=== PATIENT | male | born 1940 | race Caucasian/White ===

== ENCOUNTER 2016-05-25 16:11 | Inpatient (IN) | payer MEDICARE, BC ==
[~2016-05-25] VITALS: Ht 170.2 cm; Wt 74.8 kg
[~2016-05-25 16:11] MED LIST: AMBIEN CR12.5 MG/BO PO; CATAPRES0.2 MG PO; CLONIDINE; COLACE100 MG PO; ELIQUIS2.5 MG PO; GLUCOSAMINE & C1 CAP PO; LASIX80 MG PO; MULTAQ400 MG PO; NORVASC10 MG PO; OMNICEF300 MG PO; PLAVIX75 MG PO; PRILOSEC20 MG PO; PROBIOTIC1 EAC1 PO; RENA-VITE TABL0.8 MG PO; RENVELA800 MG PO; STOOL SOFTENER PO; TUMS PO; TUMS500 MG PO; TYLENOL PM1 TAB PO; XANAX0.25 MG PO; ZOVIRAX200 MG PO; ZYRTEC10 MG PO
[2016-05-25 18:18] VITALS: BP 154/57; BMI 25.9
[2016-05-25 19:40] VITALS: BP 141/52
--- NOTE | 2016-05-25 19:40 | NUR ---
PT RESTING IN BED WITH EYES OPEN. HE WAS VERY ANGRY WHEN I ENTERED THE ROOM. PT STATED: "MY CELL PHONE GOT KNOCKED OFF THE BED, AND I CANT REACH MY ROOM PHONE. (PT HAD THE ROOM PHONE IN HIS LAP) CELL PHONE PICKED UP OFF FLOOR FOR PT. HE THEN STATED: "THAT OTHER NURSE PROMISED ME SHE WOULD SET UP SUCTION FOR ME, AND I HAVENT SEEN HER AGAIN. SEKOU SUCTION SET UP FOR PT. HE THEN COUGHED UP A LARGE AMOUNT OF CLEAR MUCOUS AND SUCTIONED IT OUT OF HIS MOUTH INDEPENDENTLY. LEFT CHEST PORT IS UNACCESSED. LEFT ARM FISTULA HAS GOOD BRUITT AND THRILL. O2 IS ON @ 3 LPM PER NC. SR'S ARE UP X 2 IN BED. CALL LIGHT AND BEDSIDE TABLE ARE WITHIN EASY REACH.
--- NOTE | 2016-05-25 21:53 | NUR ---
PT IS RESTING IN BED WITH EYES OPEN. NO NEEDS VOICED.
--- NOTE | 2016-05-25 22:05 | NUR ---
PT. IN BED WITH HOB UP FOR COMFORT WITH EYES CLOSED AND RESP. EVEN. CALL LIGHT IS WITHIN REACH.
--- NOTE | 2016-05-26 01:47 | NUR ---
PT IS RESTING IN BED WITH EYES CLOSED.
--- NOTE | 2016-05-26 04:34 | NUR ---
PT RESTING IN BED WITH EYES CLOSED. NO DISTRESS NOTED.
[2016-05-26 06:10] LABS: ANION GAP 19.9 mmol/L (8-16); CALCIUM 9.5 mg/dL (8.5-10.1); CARBON DIOXIDE 25.5 mmol/L (21.0-32.0); CREATININE - SERUM 8.2 mg/dL (0.6-1.3); POTASSIUM - SERUM 4.4 mmol/L (3.5-5.1)
[2016-05-26 06:26] LABS: BASOPHILS 0.4 % (0.0-2.0); EOSINOPHILS 1.8 % (0-7); HEMATOCRIT 31.1 % (42.0-54.0); HEMOGLOBIN 10.3 g/dL (13.5-17.5); LYMPHOCYTES 14.3 % (15-50); MCH 35.4 pg (26.0-34.0); MCHC 33.1 g/dL (31.0-37.0); MCV 106.9 fL (80.0-100.0); MEAN PLATELET VOLUME 10.8 fL (7.4-10.4); MONOCYTES 11.5 % (2-11); PLATELET COUNT 157 10x3/uL (130-400); RBC 2.91 10x6/uL (4.20-6.10); RDW 24.6 % (11.5-14.5)
--- NOTE | 2016-05-26 07:35 | NUR ---
RESTING QUIETLY IN BED. CALL LIGHT REACH
[2016-05-26 09:29] VITALS: Ht 170.2 cm; Wt 74.8 kg
--- NOTE | 2016-05-26 12:24 | NUR ---
EATING LUNCH IN ROOM. IN ROOM
[2016-05-26 12:26] VITALS: BP 105/39
--- NOTE | 2016-05-26 16:15 | NUR ---
RESTING QUIETLY IN BED. DR DICKERSON HAS BEEN CONSULTED AND AWARE OF PT BEING ON REHAB. I SPOKE WITH DR DICKERSON ON PHONE AT APPX 1600 AND HE SAID HE WILL ROUND ON PT THIS EVENING.
--- NOTE | 2016-05-26 17:01 | NUR ---
CARE TEAM MEETING: PATIENT NEW TO UNIT AND WILL BE RA AT NEXT MEETING. PCP IS DR. MASON AND CARDIO IS DR. SAMUELS. WILL CONTNIUE TO FOLLOW WITH PATIENT UNTIL DISCHARGED.
--- NOTE | 2016-05-26 18:35 | NUR ---
RESTING QUIETLY IN BED. LEFT KNEE IMMOBILIZER IS OFF WHILE PT IS IN BED. INCISION IS RED AND WARM TO TOUCH. SUTURES NOTED TO INCISION TO LEFT KNEE. F/C PATENT. IS ALERT AND ORIENTED
--- NOTE | 2016-05-26 18:38 | NUR ---
RESTING QUIETLY IN BED. GETTING BEDSIDE DIALYSIS.
--- NOTE | 2016-05-26 19:30 | NUR ---
PT IS RESTING IN BED. DIALYSIS IS IN PROGRESS AT THIS TIME. PT IS ALERT AND ORIENTED X 4. DENIES ACUTE DISCOMFORT AT THIS TIME. LEFT CHEST PORT NOTED. O2 IS ON @ 3LPM PER NC.SR'S ARE UP X 3 IN BED. CALL LIGHT AND BEDSIDE TABLE ARE WITHIN EASY REACH.
[2016-05-26 21:43] VITALS: BP 111/58
--- NOTE | 2016-05-27 01:05 | NUR ---
RESTING QUIETLY IN BED WITH EYES CLOSED. RESPS ARE EVEN AND UNLABORED. NO ACUTE DISTRESS NOTED.
--- NOTE | 2016-05-27 02:18 | NUR ---
PT RESTING,EYES CLOSED. BED LOW. CL IN REACH.
--- NOTE | 2016-05-27 05:05 | NUR ---
PT RESTING IN BED DOING A UPDRAFT TX. NO NEEDS VOICED.
[2016-05-27 08:03] VITALS: BP 134/57
--- NOTE | 2016-05-27 17:50 | NUR ---
SITTING UP IN BED EATING SUPPER
--- NOTE | 2016-05-27 19:45 | NUR ---
PT IN BED WATCHING TV. CUP OF ICE GIVEN PER REQUEST. NO OTHER NEEDS MADE KNOWN AT THIS TIME. WATER AND CALL LIGHT IN REACH.
[2016-05-27 20:45] VITALS: BP 111/64
--- NOTE | 2016-05-27 21:25 | NUR ---
PT IN BED WITH EYES OPEN WATCHING TV. NO NEEDS MADE KNOWN AT THIS TIME. WATER AND CALL LIGHT IN REACH.
--- NOTE | 2016-05-28 00:08 | NUR ---
PT IN BED WITH EYES CLOSED AND CHEST RISING. RESPIRATIONS EVEN AND UNLABORED. NO SIGNS OF DISTRESS NOTED. WATER AND CALL LIGHT IN REACH.
--- NOTE | 2016-05-28 04:10 | NUR ---
PT IN BED WITH EYES CLOSED AT THIS TIME CHEST RISING. NO SIGN/SYMPTOMS OF DISTRESS NOTED. CALL LIGHT IN REACH.
[2016-05-28 05:56] LABS: BASOPHILS 0.1 % (0.0-2.0); EOSINOPHILS 0.1 % (0-7); HEMOGLOBIN 9.2 g/dL (13.5-17.5); IMMATURE GRANULOCYTES 2.3 % (0-5); LYMPHOCYTES 5.3 % (15-50); MCH 35.2 pg (26.0-34.0); MCHC 32.9 g/dL (31.0-37.0); MCV 107.3 fL (80.0-100.0); MEAN PLATELET VOLUME 10.6 fL (7.4-10.4); MONOCYTES 11.3 % (2-11); NEUTROPHILS 80.9 % (40-80); PLATELET COUNT 146 10x3/uL (130-400); RBC 2.61 10x6/uL (4.20-6.10); WBC 14.3 10x3/uL (4.8-10.8)
[2016-05-28 06:09] LABS: ANION GAP 16.2 mmol/L (8-16); CALCIUM 9.6 mg/dL (8.5-10.1); CARBON DIOXIDE 28.6 mmol/L (21.0-32.0); CREATININE - SERUM 7.8 mg/dL (0.6-1.3); PHOSPHOROUS 8.1 mg/dL (2.5-4.9); POTASSIUM - SERUM 4.8 mmol/L (3.5-5.1)
--- NOTE | 2016-05-28 07:38 | NUR ---
PT RESTING IN BED WITH EYES OPEN CALL LIGHT IN REACH WILL MONITER
[2016-05-28 07:55] VITALS: BP 157/72
--- NOTE | 2016-05-28 10:44 | RHP ---
PATIENT: HIRAM BURR MEDICAL RECORD: [id number] ACCOUNT: [id number] LOCATION:[facility] D.1119 : 41 ADMISSION DATE: 05/25/16 REHABILITATION HISTORY AND PHYSICAL EXAMINATION POST ADMISSION PHYSICIAN EXAMINATION DATE OF ADMISSION TO THE REHAB: 05/25/2016 ADMITTING DIAGNOSES: Cerebrovascular accident with left body involvement involving right lacunar region, end-stage renal disease and dysphagia. HISTORY OF PRESENT ILLNESS: The patient is a 75-year-old gentleman, who is admitted to the rehab secondary to a right lacunar infarct with end-stage renal disease requiring hemodialysis and recent pneumonia with acute hypoxic respiratory failure requiring mechanical ventilation. He is a 75-year-old gentleman. He underwent an aortic valve replacement on May 04 and had have a pacemaker placed at [facility]. He was transferred to [facility] for a right CVA and left-sided hemiparesis on May 10 and on May 17 developed respiratory difficulties, believing he might have aspirated while eating a cracker and was transferred back to acute hospitalist, was found to have pneumonia with worsening bilateral infiltrates and acute respiratory failure with hypoxia requiring mechanical ventilation. He has been seen by speech therapy for dysphagia and diet advancements and is tolerating those well. He is also receiving PT for debility. He has an end-stage renal disease and requires hemodialysis 3 times a week. He is now in the ICU and debilitated and needing further acute rehab to return home with his at his prior level of function where he was independent with all ADLs and mobility. He was actually playing golf and was able to get around, but he is currently moderate to total assist with all ADLs and mobility definitely inpatient rehab to get back to his prior level of function. COMORBIDITIES: In this patient include hypertensive chronic kidney disease, atrial fibrillation, dysphagia, pneumonia, respiratory failure, sepsis and septic shock, dependent on renal dialysis, moderate CHF, emphysema, UTI, anemia of chronic disease, electrolyte abnormality, status post aortic valve replacement and pacemaker placement. PAST MEDICAL HISTORY: Significant for anemia, atrial fib, end-stage renal disease, hemodialysis, prostate cancer, multiple myeloma, status post bone marrow transplant, peripheral vascular disease, osteoporosis and hypertension. PAST SURGICAL HISTORY: Includes percutaneous valve replacement, pacemaker placement, radical prostatectomy, bone marrow transplant, cataract surgery and carotid surgery. ALLERGIES: SULFA. CURRENT MEDICATIONS: Include prednisone 20 mg b.i.d. with meals, hydralazine 50 mg daily, furosemide 80 mg daily, Cardura 4 mg daily, Tums 500 mg t.i.d. with meals, Norvasc 10 mg daily, Lipitor 20 mg daily, sevelamer 1600 mg t.i.d. with meals, Protonix 40 mg daily, aspirin chewable 81 mg daily, clonidine 0.1 mg t.i.d. p.r.n. elevated blood pressures, Xanax 0.25 mg b.i.d., Combivent 1 puff q.i.d. p.r.n., polyethylene glycol 17 g in 8 ounces of water daily, albuterol 3 cc q.i.d. p.r.n. shortness of breath, Harrison 1 tab q.4 hours p.r.n. pain, Multaq 400 mg b.i.d. with meals, Colace 100 mg b.i.d. and Pulmicort 0.5 mg b.i.d. HISTORY AND PHYSICAL [id number] HIRAM BURR HABITS: No current alcohol or tobacco use. FAMILY HISTORY: Noncontributory. SOCIAL HISTORY: The patient hopes to return back home with his and get back to his prior level of functioning. REVIEW OF SYSTEMS: GENERAL: Does complain of weakness, especially on one side. HEENT: Denies cold, cough, or congestion. CARDIOVASCULAR: Denies any chest pain. LUNGS: Does complain of shortness of breath when getting up and getting around. PHYSICAL EXAMINATION: VITAL SIGNS: Stable. He is afebrile. GENERAL: A well-developed gentleman, in no acute distress, alert upon exam. HEENT: Normocephalic and atraumatic. Mucosa moist. NECK: Supple. No lymphadenopathy. LUNGS: Clear at this time. HEART: Irregular rate and rhythm. ABDOMEN: Benign. EXTREMITIES: No clubbing, cyanosis or edema. NEUROLOGIC: Consistent with an infarct which noted weakness. LABORATORY DATA: White count is 15,000 probably secondary to his prednisone. His H&H are 10 and 31. His platelet count is 157. His sodium is 135, potassium 4.4, BUN and creatinine of 77 and 8.2 and blood sugar was noted to be 84. ASSESSMENT: This 75-year-old gentleman admitted to the rehab with a working diagnosis of right lacunar infarct, affecting the left side of his body. The patient has potential to make improvement. We instituted the following multidisciplinary therapies including to, but not limited to physical, occupational, respiratory, speech, nutritional services, prosthetics and orthotics. Given his complex condition and risk for more complications, rehabilitation services cannot be provided at a lower level of care such as a senior living facility. PLAN: 1. Admit to [facility] rehab for intensive inpatient therapy to include the following disciplines: A. Physical therapy to improve gait, all transfer skills and bed mobility to a modified independent level. B. Occupational therapy to improve activities of daily to a modified independent level. C. Case management to assist with discharge planning and placement options. D. Nutrition to assist with nutritional needs. E. Rehabilitation nursing to assist and monitor the following medical conditions and to assist with any type of bowel or bladder management. 2. The patient's current medication and medical care will be continued. 3. The patient will be placed on standard fall precautions. 4. The patient's estimated length of stay is approximately 7-10 days. 5. We will go ahead and continue to follow along with renal for hemodialysis. 6. We will go ahead and follow his heart rate closely and see how he improves with physical therapy on his weakness. HISTORY AND PHYSICAL [id number] HIRAM BURR 7. We will discuss this patient during care team staff meeting this week. TRANSINT:[id number] Voice Confirmation ID: [id number] DOCUMENT ID: [id number] GABRIELLA FONTANEZ MD at 1044 CC: [id number] DICTATION DATE: 05/26/16840 SPECIAL PROCEDURES TECH: 05/26/16 1245 ADM IN [address] [place] [address]
--- NOTE | 2016-05-28 12:15 | NUR ---
PT RESTING IN BED EATING LUNCH TOLERATING WELL CALL LIGHT IN REACH WILL MONITER
--- NOTE | 2016-05-28 14:00 | NUR ---
PT RECIVING DIALYSIS IN ROOM TOLERATING WELL WILL MONITER
--- NOTE | 2016-05-28 17:46 | NUR ---
DIALYSIS FININSHED PT EATING SUPPER CALL LIGHT IN REACH WILL MONITER
--- NOTE | 2016-05-28 17:52 | NUR ---
RESTING IN BED RECEIVING DIALYSIS WITH VISTIOR IN THE ROOM.
--- NOTE | 2016-05-28 19:20 | NUR ---
PT IN BED WATCHING TV. NO CONCERNS OR NEEDS MADE KNOWN. CALL LIGHTIN JESUS.
--- NOTE | 2016-05-28 21:45 | NUR ---
PT IN BED WATCHING TV. NO CONCERNS MADE KNOWN AT THIS TIME. CALL LIGHT IN REACH
--- NOTE | 2016-05-29 00:59 | NUR ---
PT IN BED WITH EYES OPEN WATCHING TV. STATES HAVING DIFFICULTY FALLING ASLEEP. SCHEDULED SLEEP AIDE, AND ANTI-ANXIETY MEDICATIONS GIVEN WITH PRN PAIN MED DURING MED PASS. ASSISTED TO BATHROOM MINIMAL ASSIST. SMALL BM REPORTED. NO OTHER COMPLAINTS AT THIS TIME. CALL LIGHT IN REACH.
[2016-05-29 01:41] VITALS: BP 130/62
--- NOTE | 2016-05-29 04:04 | NUR ---
PT IN BED WITH EYES CLOSED AND CHEST RISING RESPIRATIONS EVEN AND UNLABORED. NO CONCERNS NOTED AT THIS TIME. CALL LIGHT IN REACH.
--- NOTE | 2016-05-29 06:44 | NUR ---
PT IN BED WATCHING TV. NO COMPLAINTS OR NEEDS MADE KNOWN. CALL LIGHT IN REACH.
--- NOTE | 2016-05-29 09:34 | NUR ---
RESTING IN BED IN HIS ROOM. DENIES NEEDS. CALL LIGHT IN REACH
--- NOTE | 2016-05-29 12:13 | NUR ---
SITTING UP IN W/C EATING LUNCH IN ROOM. VISITING.
[2016-05-29 12:15] VITALS: BP 121/53
--- NOTE | 2016-05-29 15:58 | NUR ---
RESTING QUIETLY IN BED. C/O MILD DISCOMFORT TO BACK AND HAS HEATED BLANKET TO HIS BACK FOR COMFORT. JUST LEFT
--- NOTE | 2016-05-29 17:51 | NUR ---
EATING SUPPER IN BED. CALL LIGHT IN REACH
--- NOTE | 2016-05-29 19:59 | NUR ---
PT RESTING IN BED WITH EYES OPEN. ALERT AND ORIENTED X 3. DENIES ACUTE PAIN OR DISCOMFORT. VSS. PT ASSISTED UP TO THE BATHROOM. SMALL FORMED BM NOTED. LEFT CHEST PORT NOTED. PT WEARS O2 @ 3LPM PER NC. PT USES YANKEUR SUCTION PRN. SR'S ARE UP X 3 IN BED. CALL LIGHT AND BEDSIDE TABLE ARE WITHIN EASY REACH.
--- NOTE | 2016-05-29 21:51 | NUR ---
PT RESTING IN BED WITH EYES OPEN. NO NEEDS VOICED.
[2016-05-29 23:42] VITALS: BP 127/57
--- NOTE | 2016-05-30 00:37 | NUR ---
PT SEMI FOLWER POSITION, RESPIRATIONS REGULAR AND UNLABORED, NO S/S OF ACUTE DISTRESS.
--- NOTE | 2016-05-30 03:09 | NUR ---
PT ASSISTED TO THE BATHROOM. LARGE AMOUNT OF GAS NOTED. NO BM.
--- NOTE | 2016-05-30 06:31 | NUR ---
PT IS RESTING IN BED DRINKING A CUP OF COFFEE. NO NEEDS VOICED AT THIS TIME. PT OFFERED A SHOWER, WHICH HE REFUSED STATING TODAY WAS A DAY OFF, AND HE THOUGHT HE WOULD JUST STAY IN BED AND RELAX.
--- NOTE | 2016-05-30 07:09 | NUR ---
RESTING QUIETLY IN BED CALL LIGHT IN REACH
--- NOTE | 2016-05-30 12:01 | NUR ---
LAYING IN BED VISITING WITH WHO IS IN ROOM. OXYGEN 3L NC IN PLACE.
[2016-05-30 12:02] VITALS: BP 114/49
--- NOTE | 2016-05-30 17:38 | NUR ---
SITTING UP IN BED EATING SUPPER. DENIES INCREASED SOB OR PAIN.
--- NOTE | 2016-05-30 19:40 | NUR ---
PT. IN BED WITH HOB UP FOR COMFORT AND NEEDING ASSISTANCE TO GO TO THE BATHROOM TO URINATE. ASSISTED PT. TO W/C AND WITH PORTABLE O2 SET AT 3L/MIN VIA N/C. PT. TRANSFERRED ONTO COMMODE WITHOUT ANY HELP AND WAS TOLD TO PULL THE EMERGENCY CORD WHEN FINISHED. PT. STATED HE WOULD.
--- NOTE | 2016-05-30 19:50 | NUR ---
PT. CALLED FOR ASSISTANCE IN BATHROOM. ASSISTED BACK TO W/C AND THEN BACK TO BED WITH PORTABLE O2 @3L/MIN. PT. POSITIONED TO COMFORT AND O2 CONNECTED BACK TO WALL UNIT WITHOUT ANY PROBLEMS.
[2016-05-30 22:00] VITALS: BP 166/60
--- NOTE | 2016-05-31 00:16 | NUR ---
PT. IN BED WITH HOB POSITIONED FOR COMFORT, EYES CLOSED AND RESP. EVEN. JERICA LIGHT WITHIN REACH.
--- NOTE | 2016-05-31 02:07 | NUR ---
PT. IN BED WITH HOB UP FOR COMFORT WITH EYES CLOSED AND RESP. EVEN. CALL LIGHT WITHIN REACH.
--- NOTE | 2016-05-31 03:50 | NUR ---
PT. CALLED AND REPORTED HE WAS SOB. INITIAL PULSE OX WAS 84% ON 3L/MIN OF O2. INCREASED O2 TO 3.5L/MIN AND SAT. WENT UP TO 90%. TURNED O2 BACK DOWN TO 3L/MIN AND CALLED R.T. FOR PRN BREATHING TX. AFTER TX. PT. COUGHED UP A LARGE AMOUNT OF SPUTUM AND PULSE OX BACK TO 96%. PT. FEELING MUCH BETTER ALSO. PT'S CALL LIGHT HAD DROPPED ON THE FLOOR AND PT. OVER EXERTED HIMSELF TRYING TO GET IT. CALL LIGHT CORD WRAPPED AROUND SIDE RAIL AND NOW IT IS SECURED FOR PT. TO ALWAYS BE ABLE TO REACH.
--- NOTE | 2016-05-31 04:10 | NUR ---
PT. REPORTS RESTING MORE COMFORTABLLY NOW THAT HIS RESP. STATUS HAS IMPROVED. HOB UP FOR COMFORT AND CALL LIGHT WITHIN REACH.
--- NOTE | 2016-05-31 05:50 | NUR ---
PT. ONLY WANTS TO SHAVE THIS MORNING HE IS STILL TIRED FROM LAST NIGHT'S SOB EPISODE. PT. TRANSFERRED TO W/C TO GO TO SINK TO SHAVE. ASSISTED PT. WITH GATHERING SUPPLIES AND PT. DID HIS OWN SHAVE. PT. GOT SOB AND WAS ROLLED BACK OVER BY HIS O2 AND IT WAS REPLACED AT HIS REQUEST. PT. SAT IN W/C FOR APPROX. 10 MIN. AND THEN TRANSFERRED BACK TO BED. PT. POSITIONED TO COMFORT AND HAS HIS YONKERS AND CALL LIGHT WITHIN REACH. PT. REQUESTING LACTULOSE BE ORDERED FOR HIS CONSTIPATION. EVEN THOUGH PT. HAD A LARGE BM LAST NIGHT HE STILL FEELS PRESSURE IN HIS ABD. AND THAT IS WHEN HE USUALLY TAKES THE LACTULOSE WHEN HE'S AT HOME. WILL LEAVE A NOTE FOR DR. FONTANEZ TO ORDER THE LACTULOSE. PT. EXPLAINED HE'S TO HAVE HIS 3 HOURS OF THERAPY TODAY AND HIS DIALYSIS. HE EVEN TOLD HIS NOT TO COME SEE HIM TODAY CAUSE HE WAS GOING TO BE TOO BUSY TO VISIT.
--- NOTE | 2016-05-31 09:27 | NUR ---
RECEIVING BEDSIDE DIALYSIS
--- NOTE | 2016-05-31 15:42 | NUR ---
SITTING UP IN W/C DENIES NEEDS
[2016-05-31 18:05] VITALS: BP 125/53
--- NOTE | 2016-05-31 19:32 | NUR ---
PT IS RESTING IN BED WITH EYES OPEN. ALERT AND ORIENTED X 4. DENIES ANY PAIN OR DISCOMFORT AT THIS TIME. VSS. O2 IS ON @ 3LPM PER NC. NO SOB NOTED. PT USES YANKEUR SUCTION INDEPENDENTLY PRN. PT IS VERY TALKATIVE. SR'S ARE UP X 3 IN BED. CALL LIGHT AND BEDSIDE TABLE ARE WITHIN EASY REACH.
--- NOTE | 2016-05-31 21:50 | NUR ---
PT ASSISTED TO THE BATHROOM WITH CGA FOR TRANSFERS. NO BM NOTED.
[2016-05-31 22:11] VITALS: BP 110/47
--- NOTE | 2016-06-01 00:07 | NUR ---
RESTING IN BED WITH EYES CLOSED.
--- NOTE | 2016-06-01 01:57 | NUR ---
PT RESTING IN BED, AWAKE, DENIES NEEDS AT THIS TIME. BED LOW. CL IN REACH.
--- NOTE | 2016-06-01 05:18 | NUR ---
PT IS RESTING QUIETLY IN BED WITH EYES CLOSED. NO DISTRESS NOTED.
[2016-06-01 08:05] VITALS: BP 130/55
--- NOTE | 2016-06-01 08:46 | NUR ---
PT REFUSES MIRALS TODAY. STATES I WILL ONLY TAKE CHRONULAC.
--- NOTE | 2016-06-01 09:36 | NUR ---
SITTING UP IN BED EATING BREAKFAST. NO NEEDS VOICED.
--- NOTE | 2016-06-01 11:34 | NUR ---
SITTING IN WHEELCHAIR AND AMBULATING IN THE HALLWAY WITHOUT FALLS NOTED.
--- NOTE | 2016-06-01 13:32 | NUR ---
RESTING IN BED WITH IN THE ROOM. NO NEEDS VOICED.
--- NOTE | 2016-06-01 14:15 | NUR ---
Nutrition Follow Up: Pt reported that his appetite varies depending on HD. He said that it is good for the most part. Pt is eating 75% meal avg on a Regular diet. +BM 05/31/16. No new labs to assess. Meds noted including Lasix, Lactulose and Prednisone. Rec continue current diet. Will continue to send selective menus and honor food preferences. RD following.
--- NOTE | 2016-06-01 15:41 | NUR ---
SLEEPING IN BED WITH CALLIGHT IN REACH.
--- NOTE | 2016-06-01 17:15 | NUR ---
RESTING IN BED WITHOUT ANY NEEDS VOICED.
--- NOTE | 2016-06-01 19:28 | NUR ---
PT ON TOILET WITH SMALL BM NOTED. TRANSFERED SELF TO WHEELCHAIR. RECEIVING O2 VIA PORTABLE O2 TANK AT 2 LPM NASAL CANULA. PROPELS SELF TO SINK TO WASH HANDS AND BRUSH TEETH BEFORE RETURNING TO BED AND NASAL CANULA TRANSFERRED TO WALL REGULATOR. NO COMPLANTS AT THIS TIME. CALL LIGHT IN REACH.
--- NOTE | 2016-06-01 22:42 | NUR ---
PT IN BED WITH EYES CLOSED CHEST RISING. RESPIRATIONS SHALLOW WITH NO SIGN/SYMPTOMS OF DISTESS NOTED. NASAL CANULA ON WITH 3LPM O2. CALL LIGHT IN REACH.
[2016-06-02 00:09] VITALS: BP 180/71
--- NOTE | 2016-06-02 06:18 | NUR ---
PT IN BED WITH EYES CLOSED AND CHEST RISING. EASILY AROUSED UPON ENTRY. BLOOD DRAWN AND FLUSHED VIA LEFT SUBCLAVIAN PORT WITHOUT DIFFICULTY. NO COMPLAINTS OR CONCERNS MADE KNOWN. CALL LIGHT IN REACH.
[2016-06-02 06:25] LABS: BASOPHILS 0.1 % (0.0-2.0); EOSINOPHILS 0.5 % (0-7); HEMATOCRIT 28.3 % (42.0-54.0); HEMOGLOBIN 9.2 g/dL (13.5-17.5); IMMATURE GRANULOCYTES 2.5 % (0-5); MCH 35.5 pg (26.0-34.0); MCHC 32.5 g/dL (31.0-37.0); MCV 109.3 fL (80.0-100.0); MEAN PLATELET VOLUME 10.9 fL (7.4-10.4); MONOCYTES 13.3 % (2-11); NEUTROPHILS 76.6 % (40-80); RBC 2.59 10x6/uL (4.20-6.10); RDW 22.6 % (11.5-14.5); WBC 16.7 10x3/uL (4.8-10.8)
[2016-06-02 06:40] LABS: PLATELET COUNT 100 10x3/uL (130-400)
[2016-06-02 07:05] LABS: ANION GAP 17.8 mmol/L (8-16); CALCIUM 9.4 mg/dL (8.5-10.1); CARBON DIOXIDE 24.2 mmol/L (21.0-32.0); CREATININE - SERUM 7.9 mg/dL (0.6-1.3)
--- NOTE | 2016-06-02 08:00 | NUR ---
SHIFT ASSMT COMPLETED,DENIES NEEDS,SPITTING UP MORE BLOOD TINGED MUCOUS.ON O2.BREAKFAST GIVEN.
[2016-06-02 08:43] VITALS: BP 143/46
--- NOTE | 2016-06-02 12:00 | NUR ---
RESTING QUIETLY.FAMILY VISITING.
--- NOTE | 2016-06-02 14:06 | NUR ---
CARE TEAM MEETING: SPOUSE ATTENDED MEETING .PLANS ARE FOR PATIENT TO RETURN HOME WITH HER. HE WILL NEED A BEDSIDE COMMODE AT DISCHARGE AND [facility] IS PATIENT DME. WILL CONTINUE TO FOLLOW WITH PATIENT UNTIL DISCHARGED
--- NOTE | 2016-06-02 15:00 | NUR ---
TAKEN TO HD/WC.
[2016-06-02 19:00] VITALS: BP 138/57
--- NOTE | 2016-06-02 20:00 | NUR ---
PT RETURNED TO UNIT FROM DIALYSIS AT THIS TIME. REPORTED TO HAVE 3.5 LITERS REMOVED. VSS. RETURNED TO ROOM TO EAT SUPPER. FOOD WARMED UP IN THE MICROWAVE. O2 IS ON @ 3.5LPM PER NC. LEFT CHEST PORT NOTED. BUT PASTE APPLIED TO COCCYX AT THIS TIME PER PTS REQUEST. SKIN IS SOMEWHAT PINK, BUT NO OPEN AREAS NOTED. SR'S ARE UP X 2 IN BED. CALL LIGHT AND BEDSIDE TABLE ARE WITHIN EASY REACH.
--- NOTE | 2016-06-02 23:00 | NUR ---
PT ASSISTED TO THE BATHROOM. LARGE AMOUNT OF GAS NOTED. NO BM.
--- NOTE | 2016-06-03 01:20 | NUR ---
PT RESTING IN BED. STATED HE WOKE UP HUNGRY. EATING A PUDDING CUP AT THIS TIME.
--- NOTE | 2016-06-03 02:43 | NUR ---
PT RESTING QUIETLY, NO S/S OF ACUTE DISTRESS. SUCTION ON AND AVAILABLE FOR PT TO USE.
--- NOTE | 2016-06-03 05:37 | NUR ---
PT RESTING IN BED WITH EYES OPEN. NO ACUTE DISTRESS NOTED.
--- NOTE | 2016-06-03 07:27 | NUR ---
RESTING QUIETLY IN BED CALL LIGHT IN REACH
[2016-06-03 08:24] VITALS: BP 106/60
--- NOTE | 2016-06-03 13:31 | NUR ---
RESTING QUIETLY IN BED CALL LIGHT IN REACH
[2016-06-03 19:00] VITALS: BP 159/71
--- NOTE | 2016-06-03 20:30 | NUR ---
PT NOTED UP IN BATHROOM WITH FRONT DESK AUXILIARY. LARGE AMOUNT OF GAS NOTED. NO BM. PT ASSISTED BACK TO BED AFTERWARDS. TRANSFERS SBA MOST TIMES BUT AT TIMES WILL REQUEST A SLIGHT BIT OF ASSIST. LEFT CHEST ACCESSED PORT NOTED. LEFT ARM FISTULA NOTED WITH GOOD BRUITT AND THRILL. O2 IS ON @ 3LPM PER NC. SR'S ARE UP X 3 IN BED. CALL LIGHT AND BEDSIDE TABLE ARE WITHIN EASY REACH.
--- NOTE | 2016-06-03 23:35 | NUR ---
PT IS RESTING QUIETLY IN BED WITH EYES CLOSED. RESPS ARE EVEN AND UNLABORED. NO ACUTE DISTRESS NOTED.
--- NOTE | 2016-06-04 03:08 | NUR ---
PT RESTING IN BED WITH EYES CLOSED. NO DISTRESS NOTED.
--- NOTE | 2016-06-04 03:46 | NUR ---
PT RESTING IN BED EATING ICE CHIPS, DENIES NEEDS AT THIS TIME. BED LOW. CL IN REACH.
--- NOTE | 2016-06-04 05:44 | NUR ---
PT RESTING IN BED WATCHING TV AND DRINKING A CUP OF COFFEE. NO NEEDS VOICED.
[2016-06-04 08:26] VITALS: BP 128/51
--- NOTE | 2016-06-04 20:30 | NUR ---
PT RETURNED TO UNIT FROM DIALYSIS AND RETURNED TO BED. NO CONERNS MADE KNOWN UPON RETURN. CALL LIGHT IN REACH.
[2016-06-04 20:46] VITALS: BP 115/48
--- NOTE | 2016-06-04 23:00 | NUR ---
PT IN BED WITH EYES OPEN WATCHING TV. COMPLAINS OF PAIN TO BACK 8/10 WITH PRN TYLENOL PM GIVEN. NO OTHER NEEDS MADE KNOWN. CALL LIGHT IN REACH.
--- NOTE | 2016-06-05 06:59 | NUR ---
PT IN BED WITH EYES OPEN. STATES HE WAS UNABLE TO SLEEP THROUGHOUT THE NIGHT. NO OTHER CONCERNS MADE KNOWN AT THIS TIME. CALL LIGHT IN REACH.
[2016-06-05 07:00] VITALS: BP 130/49
--- NOTE | 2016-06-05 08:00 | NUR ---
SHIFT ASSMT COMPLETED.STILL COUGHING UP SOME BLOOD TINGED SPUTUM NOTED IN YAUNKER AND DRIED ON KLEENEX.BREAKFAST GIVEN.CL IN REACH.
--- NOTE | 2016-06-05 12:00 | NUR ---
JOSEPH MILIAN FOR RENAL AND NOTED PT HAVING WHAT APPEARED TO BE A VERY DARK RED BLOOD CLOT ON HIS TONGUE;STATED SHE WILL CONVERSE WITH .PAGED FOR TRANSFER UPSTAIRS TO SEE MUSHTAQ.
[2016-06-05] MEDS ORDERED: PREDNISONE20 MG PO (12:38)
[2016-06-05] MEDS ORDERED: MIRALAX17 GM PO (12:39)
[2016-06-05] MEDS ORDERED: XANAX0.25 MG PO (12:41)
[2016-06-05] MEDS ORDERED: PROTONIX40 MG PO (12:42)
[2016-06-05] MEDS ORDERED: MULTAQ400 MG PO (12:43)
[2016-06-05] MEDS ORDERED: RENAGEL800 MG PO (12:46)
[2016-06-05] MEDS ORDERED: TUMS500 MG PO (12:47)
[2016-06-05] MEDS ORDERED: PULMICORT0.5 MG/21 INH (12:48)
[2016-06-05] MEDS ORDERED: AMBIEN10 MG PO (12:48)
[2016-06-05] MEDS ORDERED: CARDURA2 MG PO (12:49)
[2016-06-05] MEDS ORDERED: HYDRALAZINE HCL50 MG PO (12:50)
[2016-06-05] MEDS ORDERED: BAYER CHEWABLE81 MG PO (12:51)
[2016-06-05] MEDS ORDERED: LASIX80 MG PO (12:54)
[2016-06-05] MEDS ORDERED: LIPITOR20 MG PO (12:54)
[2016-06-05] MEDS ORDERED: CHRONULAC30 ML PO (12:54)
[2016-06-05] MEDS ORDERED: PROCRIT/EP4000 UNITS SQ (12:55)
[2016-06-05] MEDS ORDERED: NEPHRO-VITE RX1 TAB PO (12:55)
[2016-06-05] MEDS ORDERED: CARDURA4 MG PO ×2 (12:57→13:10)
[2016-06-05] MEDS ORDERED: BUMINATE50 ML IV (12:57)
[2016-06-05] MEDS ORDERED: HEPARIN SO1000 UNIT/ IV ×2 (12:58→13:00)
[2016-06-05] MEDS ORDERED: NORVASC10 MG PO (13:01)
[2016-06-05] MEDS ORDERED: FEXOFENADINE HC60 MG PO (13:02)
[2016-06-05] MEDS ORDERED: PLAVIX75 MG PO (13:02)
[2016-06-05] MEDS ORDERED: CATAPRES0.1 MG PO (13:04)
[2016-06-05] MEDS ORDERED: SODIUM CL 0.91000 ML IV (13:07)
[2016-06-05] MEDS ORDERED: TYLENOL PM1 TAB PO (13:15)
[2016-06-05] MEDS ORDERED: NORCO 7.5/325 T1 TA1 PO (13:20)
[2016-06-05] MEDS ORDERED: IPRAT-ALBUT 0.5-3 ML UPD ×2 (13:30→13:32)
[2016-06-05] MEDS ORDERED: COMBIVENT RESPIM4 GM INH (13:31)
[2016-06-05] MEDS ORDERED: LEVOFLOXAC250 MG/50 IV (14:05)
[2016-06-05] MEDS ORDERED: MAXIPIME 1 GM/D51 G1 IV (14:05)
[2016-06-05] MEDS ORDERED: VANCOMYCIN 1 GM/1 G1 IV (14:06)
[2016-06-05] MEDS ORDERED: RACEMIC EPI 2.0.5 ML NEB (14:09)
--- NOTE | 2016-06-05 14:25 | NUR ---
PLACED IN WC AND [facility]TAKEN TO ROOM 2108/WC WITH PORTABLE O2 ON AT 3L/NC.
--- NOTE | 2016-07-02 13:49 | CN ---
PATIENT NAME:NINO GARCIA MEDICAL RECORD: [id number] : 42 LOCATION:[id number] ADMIT DATE: 05/25/16 ACCOUNT: [id number] CONSULTING PHYSICIAN: MARCELLA LANDIN MD REFERRING PHYSICIAN: GABRIELLA FONTANEZ MD DATE OF CONSULTATION: 06/05/2016 CONSULT REQUESTING PHYSICIAN: Nino Holguin MD REASON FOR CONSULTATION: Hemoptysis. HISTORY OF PRESENT ILLNESS: Mr. Garcia is a 75-year-old gentleman who was recently hospitalized in [facility] for the pneumonia where he required mechanical ventilation. He was in acute respiratory failure. He was discharged over here for aggressive rehabilitation and 3 days ago, noticed he was coughing bright red color blood, sometimes with dark clots. This is getting worse. He was evaluated today by the nephrology and going to transfer to the medical floor for the hemoptysis and shortness of breath. Denies any chest pain. There are no fever and chills. The patient also underwent aortic valve replacement on May 04 and also had a pacemaker placed at the same time in [facility]. He also developed a right CVA and left-sided hemiparesis. He also has a history of dysphagia for which he is being seen by the speech pathologist. REVIEW OF SYSTEMS: Mainly in the history of present illness. PAST MEDICAL HISTORY: 1. Hypertension. 2. End-stage renal disease. 3. Anemia of chronic renal disease. 4. Atrial fibrillation. 5. History of prostate cancer. 6. History of multiple myeloma, status post bone marrow transplant. 7. Peripheral vascular disease. 8. Osteoporosis. 9. Recent hospitalization for respiratory failure and pneumonia. PAST SURGICAL HISTORY: 1. He has a percutaneous valve replacement. 2. Pacemaker placement. 3. Radical prostatectomy. 4. Bone marrow transplant. 5. Cataract surgery. 6. Carotid endarterectomy. ALLERGIES: HE IS ALLERGIC TO SULFA. MEDICATIONS: He is on Plavix, aspirin, and furosemide. He is on hemodialysis. Prednisone 20 mg a day. His all other medication is reviewed. PERSONAL AND SOCIAL HISTORY: The patient is . He lives with his . He is an ex-smoker. He is a nondrinker. FAMILY HISTORY: Noncontributory. PHYSICAL EXAMINATION: CONSULT REPORT [id number] NINO GARCIA GENERAL: Now, the patient is sitting in bed. He is not in acute distress. VITAL SIGNS: The blood pressure is 130/49, pulse is 62, respirations 20, temperature 97.8, and SpO2 of 97% on 3 liter nasal cannula. HEENT: Conjunctivae pink, sclerae nonicteric. NECK: Supple, no JVD. CHEST: There are bilateral crackles. No wheezing. HEART: Rhythm regular, normal sound, no murmur. ABDOMEN: Soft, bowel sounds present. No hepatosplenomegaly. RECTAL: Deferred. EXTREMITIES: No cyanosis, no clubbing, no pedal edema. SKIN: Warm, normal turgor. CENTRAL NERVOUS SYSTEM: The patient is awake and alert. There is no obvious cranial nerve abnormality. The gait was not tested. IMAGING: Chest radiograph on June 03, there is moderate cardiomegaly. There is moderate diffuse pulmonary vascular congestion, increased interstitial marking. LABORATORY DATA: CBC on June 02, the WBC 16.7, hemoglobin 9.2, hematocrit 28.3, and the platelet count is 100. Chemistry on June 02, sodium 129, potassium was 6, chloride 93, BUN is 109, and creatinine 7.9. IMPRESSION: 1. Hemoptysis. The differential diagnoses include, but not limited to: A. Secondary to pneumonia. B. Rule out pulmonary embolism. C. Rule out vasculitis. 2. History of respiratory failure and mechanical ventilation at [facility] recently. 3. History of hospital-acquired pneumonia with recent hospitalization at [facility]. 4. Right cerebrovascular accident with left hemiparesis. 5. End-stage renal disease on hemodialysis. 6. Hypertension. 7. Anemia. RECOMMENDATION: 1. I will a repeat CBC, PT/INR. I will hold the Plavix at this point. Continue aspirin. Get the CTA of the chest. Check ANCA level. Check anti-GBM. 2. Start him on vancomycin, Levaquin, and cefepime for hospital-acquired pneumonia. 3. Racemic epi p.r.n. for hemoptysis. 4. If the hemoptysis persists, we will proceed with bronchoscopy. The patient needs to be transferred from the rehab to the acute medical setting. He is still awaiting the CTA of the chest. The patient was seen and examined at the rehab unit. TRANSINT:[id number] Voice Confirmation ID: [id number] DOCUMENT ID: [id number] CONSULT REPORT [id number] NINO GARCIA MUSHTAQ MD at 1349 CC: GABRIELLA FONTANEZ MD [id number] DICTATION DATE: 06/05/16 1401 MERCHANDISING SPECIALIST: 06/05/16 1449 DIS IN 06/05/16 [place] [id number] [place] [id number]
--- NOTE | 2016-07-19 09:38 | DS ---
PATIENT:HIRAM BURR :42 MEDICAL RECORD: [id number] DISCHARGE SUMMARY ADMISSION DATE: 05/25/16 DISCHARGE DATE: 06/05/16 This is a discharge dated 06/05/2016 from the inpatient rehab. PRIMARY DIAGNOSIS: Decreased functional ability and ability to provide activities of daily living secondary to cerebrovascular accident with left hemiparesis. SECONDARY DIAGNOSES: 1. Dysphagia. 2. End-stage renal disease, on chronic hemodialysis. 3. Atrial fibrillation. 4. Pneumonia. 5. Acute respiratory failure. 6. Congestive heart failure. 7. Emphysema. 8. Anemia of chronic disease. 9. Status post aortic valve replacement and permanent pacemaker placement. 10. Constipation. 11. Hemoptysis. 12. Chest pain. 13. Hyperphosphatemia. 14. Hypertension. CONSULTANTS FOLLOWING THIS HOSPITALIZATION: Nephrology. HOSPITAL COURSE: Full H&P is located elsewhere on the chart on this 75-year-old male who was admitted to inpatient rehab for physical therapy and occupational therapy to improve gait, transfer skills, bed mobility, and activities of daily living to a modified independent level. He was evaluated by PT and OT and their plans of care were followed. He required penitentiary care for observation and assessment and medication administration. He was followed by nephrology during his hospital stay and continued on 3 times weekly hemodialysis. Electrolytes were managed by nephrology. He was cooperative with therapies, progressing towards goals. Case management was involved for discharge planning. He had an elevated white count, it was felt this was due to stress dose steroids. He developed some hemoptysis that worsened after 3 days and it was felt that he needed a higher level of care, so was transferred to the acute hospital. DISCHARGE MEDICATIONS: As per discharge medication reconciliation. DISCHARGE DISPOSITION: The patient is discharged to the inpatient hospital for a higher level of care. He will continue his current diet and level of activity and will follow up with primary care and consultants. TRANSINT:[id number] Voice Confirmation ID: [id number] DOCUMENT ID: [id number] Dictated By: LULY ROBERTS I have interviewed/examined the above patient and agree with these documented findings. DISCHARGE SUMMARY REPORT [id number] AMINAHHIRAM SANDER FONTANEZ, GABRIELLA WELSH at 0938 at 0939 CC: [id number] DICTATION DATE: 07/17/16 1048 QC TECH: 07/17/16 1733 DIS IN 06/05/16 [facility] [address] [id number]
== END 2016-06-05 14:25 | disposition short-term general hospital (02) | DRG 56 ==
LOC: D.REHAB 16:11
PROVIDERS: Internal Medicine Nephrology; ADMIT Emergency Medicine
PROC: 5A1D60Z (ICD-10-PCS; principal; 2016-05-26)
DX: I69.354 Hemiplegia and hemiparesis following cerebral infarction affecting left non-dominant side (principal); N18.6 End stage renal disease; J18.9 Pneumonia, unspecified organism; J96.90 Respiratory failure, unspecified, unspecified whether with hypoxia or hypercapnia; R65.21 Severe sepsis with septic shock; I13.2 Hypertensive heart and chronic kidney disease with heart failure and with stage 5 chronic kidney disease, or end stage renal disease; N39.0 Urinary tract infection, site not specified; R04.2 Hemoptysis; I69.391 Dysphagia following cerebral infarction; I50.9 Heart failure, unspecified; Z99.2 Dependence on renal dialysis; I48.91 Unspecified atrial fibrillation; J43.9 Emphysema, unspecified; D63.1 Anemia in chronic kidney disease; E87.8 Other disorders of electrolyte and fluid balance, not elsewhere classified; Z95.0 Presence of cardiac pacemaker

== ENCOUNTER 2016-06-05 15:00 | Inpatient (IN) | payer MEDICARE, BC ==
[~2016-06-05] VITALS: Ht 170.2 cm; Wt 62.2 kg
[~2016-06-05 15:00] MED LIST changes: +AMBIEN10 MG PO; +BAYER CHEWABLE81 MG PO; +BUMINATE50 ML IV; +CARDURA2 MG PO; +CARDURA4 MG PO; +CATAPRES0.1 MG PO; +CHRONULAC30 ML PO; +COMBIVENT RESPIM4 GM INH; +FEXOFENADINE HC60 MG PO; +HEPARIN SO1000 UNIT/ IV; +HYDRALAZINE HCL50 MG PO; +IPRAT-ALBUT 0.5-3 ML UPD; +LEVOFLOXAC250 MG/50 IV; +LIPITOR20 MG PO; +MAXIPIME 1 GM/D51 G1 IV; +MIRALAX17 GM PO; +NEPHRO-VITE RX1 TAB PO; +NORCO 7.5/325 T1 TA1 PO; +PREDNISONE20 MG PO; +PROCRIT/EP4000 UNITS SQ; +PROTONIX40 MG PO; +PULMICORT0.5 MG/21 INH; +RACEMIC EPI 2.0.5 ML NEB; +RENAGEL800 MG PO; +SODIUM CL 0.91000 ML IV; +VANCOMYCIN 1 GM/1 G1 IV
[2016-06-05 15:20] VITALS: BP 115/48; BMI 25.9
--- NOTE | 2016-06-05 15:24 | NUR ---
PT ARRIVED FROM REHAB BY STRETCHER AND AT SIDE NO DISTRESS OBSERVED O2 3LNC AND PT RESPERATIONS EVEN AND UNLBOARED NO S/S OF DISTRESS OF COUGHING UP BLOOD AT THIS TIME CENTRAL LINE SALINE LOCKED AND FLUSHED WITH 10CC NORMAL SALINE WILL MONITOR
--- NOTE | 2016-06-05 17:05 | NUR ---
PT LAYING IN BED NO DISTRESS OBSERVED CALL LIGHT IN REACH SRX2 BED LOW AND LOCKED. INFUSA PORT WILL NOT DRAW BLOOD BACK FLUSHES WITH NO DIFFICULTY WILL KEEP TARAN NEEDLE IN PLACE AND HAVE PERIPHIEAL LAB DRAWN COMPLETED LAB CALLED AND NOTIFIED
[2016-06-05 17:36] LABS: ALBUMIN 3.2 g/dL (3.4-5.0); BILIRUBIN - TOTAL 0.78 mg/dL (0.2-1.3); CALCIUM 9.5 mg/dL (8.5-10.1); CARBON DIOXIDE 28.6 mmol/L (21.0-32.0); CREATININE - SERUM 5.5 mg/dL (0.6-1.3); POTASSIUM - SERUM 5.6 mmol/L (3.5-5.1); PROTEIN - SERUM 7.6 g/dL (6.4-8.2)
[2016-06-05 18:08] LABS: BASOPHILS 0.1 % (0.0-2.0); EOSINOPHILS 0.1 % (0-7); HEMATOCRIT 30.1 % (42.0-54.0); HEMOGLOBIN 9.7 g/dL (13.5-17.5); IMMATURE GRANULOCYTES 2.3 % (0-5); LYMPHOCYTES 6.6 % (15-50); MCH 35.8 pg (26.0-34.0); MCHC 32.2 g/dL (31.0-37.0); MCV 111.1 fL (80.0-100.0); MEAN PLATELET VOLUME 10.1 fL (7.4-10.4); MONOCYTES 4.7 % (2-11); NEUTROPHILS 86.2 % (40-80); PLATELET COUNT 119 10x3/uL (130-400); RBC 2.71 10x6/uL (4.20-6.10); RDW 22.5 % (11.5-14.5); WBC 14.9 10x3/uL (4.8-10.8)
[2016-06-05 18:24] LABS: INR 1.21 (0.85-1.17); PROTIME 15.2 SECONDS (11.6-15.0)
[2016-06-05 18:26] LABS: D-DIMER-QUANTITATIVE 3.48 ug/mLFEU (0.20-0.54)
--- NOTE | 2016-06-05 19:30 | NUR ---
RECEIVED PT IN BED EYES CLOSED RESP UNLABORED NAD NOTED
[2016-06-05 20:00] VITALS: BP 135/54
[2016-06-06] VITALS: BP 134/53
[2016-06-06 04:00] VITALS: BP 94/41
[2016-06-06 07:00] VITALS: BP 111/47
[2016-06-06 09:36] LABS: ANION GAP 17.3 mmol/L (8-16); BASOPHILS 0.2 % (0.0-2.0); CALCIUM 9.1 mg/dL (8.5-10.1); CARBON DIOXIDE 24.3 mmol/L (21.0-32.0); CREATININE - SERUM 6.2 mg/dL (0.6-1.3); HEMATOCRIT 26.3 % (42.0-54.0); HEMOGLOBIN 8.4 g/dL (13.5-17.5); IMMATURE GRANULOCYTES 3.2 % (0-5); LYMPHOCYTES 9.6 % (15-50); MCH 35.7 pg (26.0-34.0); MCHC 31.9 g/dL (31.0-37.0); MCV 111.9 fL (80.0-100.0); MEAN PLATELET VOLUME 10.7 fL (7.4-10.4); MONOCYTES 11.8 % (2-11); NEUTROPHILS 74.2 % (40-80); PLATELET COUNT 111 10x3/uL (130-400); RBC 2.35 10x6/uL (4.20-6.10); RDW 22.1 % (11.5-14.5); WBC 10.8 10x3/uL (4.8-10.8)
[2016-06-06 09:43] LABS: POTASSIUM - SERUM 4.6 mmol/L (3.5-5.1)
[2016-06-06 11:56] VITALS: BP 154/54
--- NOTE | 2016-06-06 13:07 | NUR ---
PAIN MEDS ADMIN TO PT BY JESSICA NUNEZ WILL MONITOR
--- NOTE | 2016-06-06 14:00 | NUR ---
PT LAYING IN BED NO DISTRESS OBSERVED CALL LIGHT IN REACH SRX2 IN ROOM AT SIDE NO DISTRESS OBSERVED AT THIS TIME WILL MONITOR
[2016-06-06 16:00] VITALS: BP 104/49
--- NOTE | 2016-06-06 16:33 | NUR ---
PT C/O NOT FEELING GOOD AND REQUESTING TO SPEAK WITH DR LANDIN SPOKE WITH DR BERGER AND NOTIFED DR LANDIN SPOKE WITH PT PRIOR TO LEAVING UNIT NO ORDERS RECIVED FROM DR LANDIN AT THIS TIME
[2016-06-06 17:27] LABS: ERYTHROCYTE SEDIMENTATION RATE 29 mm/hr (0-20)
[2016-06-06 20:00] VITALS: BP 114/48
[2016-06-07] VITALS: BP 136/56
--- NOTE | 2016-06-07 00:22 | NUR ---
[employer] AT BEDSIDE FOR VS. NEEDS ADDRESSED, CALL LIGHT IN REACH. WILL CONT TO MONITOR.
[2016-06-07 04:00] VITALS: BP 152/55
[2016-06-07 06:42] LABS: BASOPHILS 0 % (0.0-2.0); EOSINOPHILS 0 % (0-7); HEMATOCRIT 25.2 % (42.0-54.0); HEMOGLOBIN 8.4 g/dL (13.5-17.5); IMMATURE GRANULOCYTES 3.1 % (0-5); LYMPHOCYTES 4.3 % (15-50); MCH 36.4 pg (26.0-34.0); MCHC 33.3 g/dL (31.0-37.0); MEAN PLATELET VOLUME 10.7 fL (7.4-10.4); MONOCYTES 7.8 % (2-11); NEUTROPHILS 84.8 % (40-80); PLATELET COUNT 106 10x3/uL (130-400); RBC 2.31 10x6/uL (4.20-6.10); RDW 22.3 % (11.5-14.5); WBC 11.7 10x3/uL (4.8-10.8)
[2016-06-07 06:44] LABS: MCV 109.1 fL (80.0-100.0)
[2016-06-07 07:05] LABS: ANION GAP 18.2 mmol/L (8-16); CALCIUM 9.1 mg/dL (8.5-10.1); CARBON DIOXIDE 24.1 mmol/L (21.0-32.0); CREATININE - SERUM 7.6 mg/dL (0.6-1.3); POTASSIUM - SERUM 5.3 mmol/L (3.5-5.1); VANCOMYCIN - RANDOM 13.4 ug/mL (10.0-20.0)
--- NOTE | 2016-06-07 07:33 | NUR ---
RECEIVED PT REPORT. NO OTHER NEEDS AT THIS TIME. WILL CONTINUE PLAN OF CARE.
[2016-06-07 07:42] VITALS: BP 133/48
--- NOTE | 2016-06-07 10:45 | NUR ---
PT IS ALERT. ASSESSMENT DONE PER FLOWSHEET. NO OTHER NEEDS AT THIS TIME. WILL CONTINUE TO MONITOR.
[2016-06-07 12:59] VITALS: Ht 170.2 cm; Wt 62.2 kg
--- NOTE | 2016-06-07 13:17 | NUR ---
PT IN HD. WILL AWAIT FOR PT TO FINISH.
[2016-06-07 16:01] VITALS: BP 138/43
[2016-06-07 20:00] VITALS: BP 105/45
--- NOTE | 2016-06-07 23:38 | NUR ---
AML ANALYST AT BEDSIDE FOR VS, NEEDS ADDRESSED AT THIS TIME. CALL LIGHT IN REACH. CONT TO MONITOR.
[2016-06-08 04:00] VITALS: BP 124/46
[2016-06-08 05:33] LABS: BASOPHILS 0.1 % (0.0-2.0); EOSINOPHILS 0 % (0-7); HEMATOCRIT 24.5 % (42.0-54.0); HEMOGLOBIN 8.1 g/dL (13.5-17.5); IMMATURE GRANULOCYTES 1.8 % (0-5); LYMPHOCYTES 3.8 % (15-50); MCH 36.2 pg (26.0-34.0); MCHC 33.1 g/dL (31.0-37.0); MCV 109.4 fL (80.0-100.0); MEAN PLATELET VOLUME 10.1 fL (7.4-10.4); MONOCYTES 9.3 % (2-11); PLATELET COUNT 99 10x3/uL (130-400); RBC 2.24 10x6/uL (4.20-6.10); RDW 21.8 % (11.5-14.5); WBC 13.6 10x3/uL (4.8-10.8)
[2016-06-08 05:56] LABS: ANION GAP 15.9 mmol/L (8-16); CALCIUM 9.2 mg/dL (8.5-10.1); CARBON DIOXIDE 25.6 mmol/L (21.0-32.0); POTASSIUM - SERUM 4.5 mmol/L (3.5-5.1); VANCOMYCIN - RANDOM 25.6 ug/mL (10.0-20.0)
[2016-06-08 07:52] VITALS: BP 103/46
--- NOTE | 2016-06-08 08:14 | NUR ---
received pt report. no other needs at this time. will continue plan of care. no other needs at this time. will continue to monitor.
--- NOTE | 2016-06-08 11:31 | NUR ---
PT IS ALERT. ASSESSMENT DONE PER FLOWSHEET. NO OTHER NEEDS AT THIS TIME. WILL CONTINUE TO MONITOR.
[2016-06-08 11:34] VITALS: BP 103/52
--- NOTE | 2016-06-08 12:26 | NUR ---
NO SS OF DISTRESS WILL CONTINUE TO MONITOR.
--- NOTE | 2016-06-08 13:06 | NUR ---
PT REPORTED BEING SHORT OF BREATH. O2 SAT 62. TURN O2 FROM 2L TO 5L. PAGED RESPIRATORY AND ENCOURAGED PT TO DEEP BREATH. SAT CLIMBED TO 73. RE-EVALUATED PT'S LUNGS, STILL DIMINISHED. RESPIRATORY ARRIVED TO ROOM AND ADMINISTERED BREATHING TX. PT SAT SLOWLY KEITH TO 91-92. WILL CONTINUE TO MONTIOR. BP 125/42
--- NOTE | 2016-06-08 15:58 | NUR ---
Patient Name: HIRAM BURR Admission Status: Elective Accout number: [id number] Admission Date: 06-05-2016 : 1940 Admission Diagnosis:HEMOPTYSIS Attending: ROBI Current LOS: 3 Anticipated DC Date: Planned Disposition: Inpatient Rehab Primary Insurance: MEDICARE A & B PLANNED EXTERNAL PROVIDER: [facility] Discharge Planning Comments: * Is the patient Alert and Oriented? Yes 0 * How many steps to enter\exit or inside your home? NONE 0 * PCP DR. MASON 0 * Pharmacy [facility] 0 * Preadmission Environment Acute Inpatient Rehab 0 * Facility Name [facility] 0 * ADLs Partial Dependent 0 * Partial ADLs (Assistance needed) Ambulation Bathing Medication Management 0 * Equipment Oxygen Walker Wheelchair 0 * Other Equipment [facility] - MEDICAL EQUIPMENT PROVIDER 0 * List name and contact numbers for known caregivers / representatives who currently or will assist patient after discharge: ERICA BURR, SPOUSE, 0 * Community resources currently utilized None 0 * Please name any agencies selected above. NONE 0 * Additional services required to return to the preadmission environment? Yes * Can the patient safely return to the preadmission environment? Yes 0 * Has this patient been hospitalized within the prior 30 days at any hospital? Yes 0 CM MET WITH PT IN ROOM TO DISCUSS DISCHARGE PLANNING AND NEEDS. PT REPORTS LIVING AT HOME INDEPENDENTLY WITH SPOUSE PRIOR TO HEART VALVE REPLACEMENT. PT HAS WALKER, HOME AND PORTABLE OXYGEN WELL A TRANSPORT CHAIR AT HOME PROVIDED BY [facility]. PT HAD NO OUTSIDE SERVICES ASSISTING IN THE HOME. SINCE HEART VALVE REPLACEMENT, PT HAS BEEN TO [facility] INPAT[facility] REH[facility], [facility] AND THEN [facility] IN[facility] PRIOR TO THIS ADMISSION. CM DISCUSSED AVAILABILITY OF HOME HEALTH, REHAB SERVICES AND MEDICAL EQUIPMENT. PT THINKS HE MAY NEED INPATIENT REHAB AGAIN HE IS HAVING LEFT SIDED WEAKNESS AND WAS NOT ABLE TO WALK LIKE HE WAS WHEN HE CAME FROM INPATIENT REHAB. PT THINKS HE CAN TOLERATE THREE HOURS OF PROGRESSIVE THERAPY DAILY WITH GOAL TO RETURN HOME WITH HOME HEALTH AFTER REHAB. REPORTS HIS SPOUSE WILL PICK HO, UP FOR DISCHARGE HOME. PT REPORTS HE IS NOT STRONG ENOUGH TO GO HOME AND THAT HIS LEFT SIDE IS NOT WORKING SINCE ADMISSION TO HOSPITAL FROM [facility]. PT REPORTS HE THINKS HE NEEDS REHAB PRIOR TO GOING HOME AND WANTS TO BE CONSIDERED FOR [facility] INPAT[facility]. CM TO FOLLOW AND ASSIST NEEDED. Housekeeping Laundry Worker: Jason Jaimes
[2016-06-08 16:05] VITALS: BP 124/66
--- NOTE | 2016-06-08 17:26 | NUR ---
Mr. Garcia had bedside hemodialysis today via his left upper arm av fistula. Average blood flow was 350 mls/minute. Net fluid removed was 4145 mls. Cramping post treatment and hypotensive at end of treatment.ost vital signs were:B/P: 110/53, HR: 60, Resps: 20.
[2016-06-08 20:00] VITALS: BP 123/3
--- NOTE | 2016-06-08 20:21 | NUR ---
ASSESSMENT COMPLETE, A&O, IN BED WATCHING TV, PT DENIES PAIN OR NEEDS, BED LOW, CL IN REACH.
--- NOTE | 2016-06-08 21:00 | NUR ---
HS MEDS GIVEN WITH FRESH ICE WATER, PT DENIES NEEDS, BED LOW, CL IN REACH.
--- NOTE | 2016-06-08 21:41 | NUR ---
SPOKE WITH DR MCKINNEY, INFORMED HIM OF CONSULT PLACED BY DR TAYLOR.
--- NOTE | 2016-06-08 23:43 | NUR ---
RELIGION DEPARTMENT CHAIR AT BEDSIDE FOR VS, NEEDS ADDRESSED. CALL LIGHT IN REACH.CONT TO MONITOR.
[2016-06-09] VITALS: BP 122/47
[2016-06-09 04:00] VITALS: BP 143/51
[2016-06-09 06:24] LABS: BASOPHILS 0.1 % (0.0-2.0); EOSINOPHILS 0 % (0-7); HEMATOCRIT 27.2 % (42.0-54.0); IMMATURE GRANULOCYTES 2.1 % (0-5); LYMPHOCYTES 2.8 % (15-50); MCH 35.7 pg (26.0-34.0); MCHC 33.1 g/dL (31.0-37.0); MCV 107.9 fL (80.0-100.0); MEAN PLATELET VOLUME 10.5 fL (7.4-10.4); PLATELET COUNT 108 10x3/uL (130-400); RBC 2.52 10x6/uL (4.20-6.10); RDW 21.5 % (11.5-14.5); WBC 16.1 10x3/uL (4.8-10.8)
[2016-06-09 06:38] LABS: ANION GAP 20.1 mmol/L (8-16); CALCIUM 9.7 mg/dL (8.5-10.1); CARBON DIOXIDE 22.1 mmol/L (21.0-32.0); CREATININE - SERUM 7.4 mg/dL (0.6-1.3); VANCOMYCIN - RANDOM 22.2 ug/mL (10.0-20.0)
[2016-06-09 06:39] LABS: POTASSIUM - SERUM 5.2 mmol/L (3.5-5.1)
[2016-06-09 08:00] VITALS: BP 129/56
[2016-06-09 12:00] VITALS: BP 106/47
--- NOTE | 2016-06-09 13:00 | NUR ---
Nutrition follow-up: Diet: Renal PO intake ~50-75% of meals Labs reviewed No BM charted since 06/03 Labs reviewed Wt: 154# PO intake is fair to good at this time. RDN following.
--- NOTE | 2016-06-09 13:41 | NUR ---
ALERT AND ORIENTED X4. EXPRESSES NOT WANTING DIALYSIS IF NOT DONE AT BEDSIDE. REQUEST TO SPEAK TO DOCTOR. VERÓNICA RENAL ELECTRICIAN MAINTENANCE PAGED. COMPLAINS OF SOB. O2 98% 4L NC. COMPLAINS OF BACK PAIN. ENCOURAGE TO TURN IN BED. REQUEST AIRBED FROM WOUND CARE NURSE. CONTINUE PLAN OF CARE. BED LOCKED AND LOW. CALL LIGHT IN REACH. TWO SIDERAILS UP. SINUS RHYTHM PACED 64bpm ON TELEMETRY.
--- NOTE | 2016-06-09 15:57 | NUR ---
PATIENT PATHWAYS: [facility] @ 10:15am. Med recs forwarded. BMM Dialysis Coordinator.
[2016-06-09 16:00] VITALS: BP 126/46
[2016-06-09 16:14] LABS: ANCA - ANTIMYELOPEROXIDASE <9.0 U/mL (0.0-9.0); ANCA - ANTIPROTEINASE 3 <3.5 U/mL (0.0-3.5); ANCA - ATYPICAL <1:20 titer (Neg:<1:20); ANCA - CYTOPLASMIC <1:20 titer (Neg:<1:20); ANCA - PERINUCLEAR <1:20 titer (Neg:<1:20)
--- NOTE | 2016-06-09 16:29 | NUR ---
ALERT AND ORIENTED X4. BATH AND LINEN CHANGE COMPLETE. SITTING UP IN CHAIR. RT CHEST IP DRESSING CHANGE COMPLETE. SWAP CAPS ON. BIOPATCH IN PLACE. INITIALS AND DATE ON DRESSING. DENIES PAIN. SOB MANAGED WITH O2 THERAPY. CONTINUE PLAN OF CARE. SINUS RHYTHM 64 PACED BEATS ON TELEMETRY. CHAIR LOCKED. CALL LIGHT IN REACH.
--- NOTE | 2016-06-09 18:17 | NUR ---
OT NOTE: PT COMPLETED DYNAMIC SITTING BALANCE WITH CGA. PT COMPLETED SELF FEEDING WITH SET UP. THANK YOU, CIARA ARSHAD/Manda
[2016-06-09 21:56] VITALS: BP 147/103
[2016-06-10 01:17] VITALS: BP 113/59
--- NOTE | 2016-06-10 02:15 | NUR ---
PT RESTING WELL WITHOUT C/O OR DISTRESS NOTED. WILL CONT TO MONITOR. CALL LIGHT WITHIN REACH.
[2016-06-10 05:11] VITALS: BP 106/46
[2016-06-10 05:46] LABS: BASOPHILS 0.1 % (0.0-2.0); EOSINOPHILS 0 % (0-7); HEMATOCRIT 26.2 % (42.0-54.0); HEMOGLOBIN 8.8 g/dL (13.5-17.5); IMMATURE GRANULOCYTES 3.9 % (0-5); LYMPHOCYTES 3.9 % (15-50); MCH 36.1 pg (26.0-34.0); MCHC 33.6 g/dL (31.0-37.0); MCV 107.4 fL (80.0-100.0); MEAN PLATELET VOLUME 10.7 fL (7.4-10.4); NEUTROPHILS 87.1 % (40-80); PLATELET COUNT 106 10x3/uL (130-400); RBC 2.44 10x6/uL (4.20-6.10); RDW 21.8 % (11.5-14.5); WBC 17.7 10x3/uL (4.8-10.8)
--- NOTE | 2016-06-10 06:34 | NUR ---
DR MCKINNEY HERE TO SEE PT, NEW ORDERS RECEIVED AND NOTED FOR CT OF THE HEAD. PT UPDATED ON POC AND VERBALIZES UNDERSTANDING.
[2016-06-10 06:35] LABS: % SATURATION 70 % (15-55); IRON 161 ug/dl (35-150); TOTAL IRON BIND CAPACITY 230 ug/dl (260-445); UNSAT IRON BIND CAPACITY 69 ug/dl (150-375)
[2016-06-10 07:05] LABS: CALCIUM 9.9 mg/dL (8.5-10.1); CARBON DIOXIDE 20.8 mmol/L (21.0-32.0)
[2016-06-10 07:13] LABS: CREATININE - SERUM 9.3 mg/dL (0.6-1.3)
[2016-06-10 07:14] LABS: ANION GAP 22.2 mmol/L (8-16)
--- NOTE | 2016-06-10 07:30 | NUR ---
ELDON IS RESTING QUIETLY WITH EYES CLOSED. HE DID NOT AWAKEN TO MY ENTRY. RESPIRATIONS ARE EVEN AND UNLABORED. HE IS WITHOUT S/S OF DISTRESS OR NEEDS.
[2016-06-10 08:10] VITALS: BP 122/41
--- NOTE | 2016-06-10 10:23 | NUR ---
PT REQUEST TO USE BEDPAN BUT UNABLE TO PRODUCE BOWEL MOVEMENT LYING BACK. ASSISTED PT TO A BEDSIDE COMMODE INSTEAD AND PT HAD LARGE SOFT FORMED BROWN STOOL. PT STATES HE FEELS MUCH RELIEF FROM IT. ASSISTED PT BACK INTO BED AND PULLED HIM UP AND REPOSITIONED FOR COMFORT. AIR MATTRESS INFLATED AND PT STATES HE IS COMFORTABLE AT THIS TIME. NO FURTHER NEEDS AT THIS TIME. WILL CTM.
--- NOTE | 2016-06-10 12:15 | NUR ---
PATIENT IS SITTING UP IN THE BEDSIDE CHAIR. HE WAS ASSISTED TO THE CHAIR PER PT AFTER GOING TO THE RESTROOM HE WAS ABLE TO PASS GAS BUT NOT HAVE A BOWEL MOVEMENT. HE HAS MANY VISITORS AT THE BEDSIDE. HE IS SMILING AND INTERACTING. SPOKE WITH THE DIALYSIS NURSE AND REPORTED TO HIM THAT HE WILL RECEIVE DIALYSIS LATER THIS AFTERNOON. HE VOICED UNDERSTANDING AND DENIES NEEDS.
[2016-06-10 12:25] VITALS: BP 135/47
[2016-06-10 16:18] VITALS: BP 117/43
--- NOTE | 2016-06-10 16:30 | NUR ---
ELDON GIVEN MEDICATIONS, INCLUDING A NORCO FOR PAIN IN HIS BACK. HE IS RECEIVING DIALYSIS AT THE BEDSIDE. FAMILY REMAINS. PATIENT IS VISITING AND LAUGHING WITH HIS FAMILY. DENIES OTHER NEEDS.
--- NOTE | 2016-06-10 18:27 | NUR ---
PATIENT STATES THAT HE IS FEELING BETTER NOW. DIALYSIS CONTINUES AT THE BEDISD WITHOUT ADVERSE REACTIONS.
--- NOTE | 2016-06-10 18:47 | NUR ---
OT NOTE: PT COMPLETED SELF FEEDING WITH SBA. THANK YOU, CIARA ARSHAD/Manda
--- NOTE | 2016-06-10 19:45 | NUR ---
INTRODUCED MYSELF TO PT PRIMARY RN [facility] SHIFT. PT IS ALERT AND ORIENTED RESTING QUIETLY IN BED. SHIFT ASSESSMENT COMPLETED. PT DENIES ANY CURRENT NEEDS AT THIS TIME. CL IN REACH, BED IN LOWEST, SIDE RAILS X2. WILL CPOC AND PULL MEDS FOR NIGHTLY MED PASS SHORTLY.
[2016-06-10 20:00] VITALS: BP 96/37
--- NOTE | 2016-06-10 21:15 | NUR ---
NIGHTLY MEDICATIONS GIVEN. PT REFUSED MIRALAX R/T WANTING A SUPPOSITORY INSTEAD. PT SITTING UP IN BED C/O NOT BEING ABLE TO SPIT OUT ANYTHING AND BREATHE. VSS AND PULSE OX SAT 94%. 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 PTS KNEES ARE VERY DRY APPLIED LOTION ALL OVER LEGS AND ARMS FOR COMFORT. PT DENIES ANY FURTHER NEEDS AT THIS TIME. CL IN REACH. WILL CPOC.
--- NOTE | 2016-06-10 23:49 | NUR ---
PT CALLED STATING "I CANT BREATHE IM GOING TO , CALL RESPIRATORY NURSE" CALLED RESPIRATORY AND TALKED WITH PT, CALMED HIM DOWN, O2 SAT 95% PT GET VERY ANXIOUS BECAUSE HE CANT COUGH UP ANY SPUTUM AND FEELS LIKE ITS "STUCK". RT PROVIDED TX. NO FURTHER NEEDS. CL IN REACH. WILL CTM.
[2016-06-11] VITALS (12 sets, daily range): BP systolic 93–157; BP diastolic 37–68
--- NOTE | 2016-06-11 00:54 | NUR ---
PT SITTING UP IN BED AWAKE STILL. STATES HE IS GETTING SLEEPY AND TRYING TO FALL ASLEEP. RR NONLABORED WITH NC @4L IN PLACE. PT OFTEN COUGHING AND SUCTIONING BUT UNABLE TO PRODUCE ANY SPUTUM. ENCOURAGED FLUID INTAKE TO THIN SECRETIONS. PT DENIES ANY FURTHER NEEDS AT THIS TIME. CL IN REACH. WILL CPOC.
--- NOTE | 2016-06-11 01:40 | NUR ---
PT C/O BACK PAIN AND GENERALIZED DISCOMFORT REQUESTING AND PROVIDED WITH PRN NORCO. NO FURTHER NEEDS. WILL CPOC.
--- NOTE | 2016-06-11 04:26 | NUR ---
OBTAINED CONSENTS FOR BRONCHOSCOPY TODAY AT 11AM BY . PT IS AWAKE AND RESTLESS STATES HE HASNT SLEPT ANY TODAY. REQUESTING TO HAVE HIS PROCEDURE SOONER SO HE CAN BE PUT TO SLEEP. AM LABS DRAWN VIA L.CHEST IMPLANTED PORT, FLUSHED AFTER TO CLEAR LINE AND SWAB CAPS APPLIED. NO FURTHER NEEDS AT THIS TIME. CL IN REACH. WILL CPOC.
[2016-06-11 04:29] LABS: BASOPHILS 0.1 % (0.0-2.0); EOSINOPHILS 0 % (0-7); HEMATOCRIT 25.3 % (42.0-54.0); HEMOGLOBIN 8.6 g/dL (13.5-17.5); IMMATURE GRANULOCYTES 3.5 % (0-5); LYMPHOCYTES 3.4 % (15-50); MCH 36.6 pg (26.0-34.0); MCV 107.7 fL (80.0-100.0); MEAN PLATELET VOLUME 9.8 fL (7.4-10.4); MONOCYTES 7.9 % (2-11); NEUTROPHILS 85.1 % (40-80); PLATELET COUNT 88 10x3/uL (130-400); RBC 2.35 10x6/uL (4.20-6.10); RDW 22.3 % (11.5-14.5); WBC 18.4 10x3/uL (4.8-10.8)
[2016-06-11 04:38] LABS: APTT 26.4 SECONDS (22.8-39.4); INR 1.26 (0.85-1.17); PROTIME 15.7 SECONDS (11.6-15.0)
[2016-06-11 04:50] LABS: CALCIUM 9.1 mg/dL (8.5-10.1); VANCOMYCIN - TROUGH 15.9 ug/mL (10.0-20.0)
[2016-06-11 04:53] LABS: ANION GAP 13.6 mmol/L (8-16); CARBON DIOXIDE 30.1 mmol/L (21.0-32.0); CREATININE - SERUM 6.1 mg/dL (0.6-1.3); POTASSIUM - SERUM 4.7 mmol/L (3.5-5.1)
[2016-06-11 05:19] LABS: PLATELET ESTIMATE DECREASED; PLATELET MORPHOLOGY NORMAL PLT MORPH
--- NOTE | 2016-06-11 07:38 | NUR ---
RECEIVED REPORT FROM NIGHT NURSE. PATIENT ASLEEP WILL CONTINUE TO MONITOR.
--- NOTE | 2016-06-11 10:28 | NUR ---
PRE OPERATIVE MEDICATIONS ADMINISTERED FOR BRONCHOSCOPY. LEFT CHEST PORT PATENT WITH BRISK BLOOD RETURN PRESENT. PT TAKEN TO BROCHOSCOPY AT THIS TIME. WILL MONITOR PT WHEN HE RETURNS TO THE FLOOR.
--- NOTE | 2016-06-11 11:34 | NUR ---
REPORT RECEIVED FROM ENRIQUE DOS SANTOS IN SPECIALS. PT IS STABLE AND WILL RETURN TO THE FLOOR.
--- NOTE | 2016-06-11 11:45 | NUR ---
BACK TO ROOM FROM BRONCHOSCOPY AT THIS TIME. INITIATED VITAL SIGNS PER ORDER. PT SLEEPING AND SNORING. OXYGEN ON 7L OXYMIZED WITH SATURATIONS 96-97%. AT BEDSIDE. WILL CONTINUE TO MONITOR.
[2016-06-11 14:19] LABS: LYMPH - BF 4 %; MACROPHAGES BF 51 %; MESOTHELIALS BF 27 %; NEUT - BF 18 %
--- NOTE | 2016-06-11 14:38 | NUR ---
NUTRITION MONITORING & EVAL PT UNDERGOING HD @ THIS TIME. DIET TO RESUME AT DINNER. WILL PROVIDE DIET, MONITOR PT PROGRESS. RD FOLLOWING
--- NOTE | 2016-06-11 15:00 | NUR ---
DIALYSIS STARTED. PT DENIES NEEDS AT THIS TIME. CALL LIGHT IN REACH, WILL CONTINUE WITH PLAN OF CARE.
--- NOTE | 2016-06-11 17:10 | NUR ---
SCHEDULED MEDICATIONS ADMINISTERED AT THIS TIME. DIALYSIS CONTINUES. DENIES NEEDS AT THIS TIME. CALL LIGHT IN REACH, WILL CONTINUE WITH PLAN OF CARE.
--- NOTE | 2016-06-11 18:14 | NUR ---
Mr. Garcia had bedside hemodialysis today vi his left upper arm av fistula from 1149 until 1750. Average blood flow was 350 mls/minute. Net fluid removed was 3000 mls. Post vital signs were: B/P: 103/42, HR: 71, Temp: 97.7, resps: 18.
--- NOTE | 2016-06-11 21:19 | NUR ---
PT LAYING IN BED WITH FAMILY IN ROOM AT BEDSIDE NO DISTRESS OBSERVED CALL LIGHT IN REACH SRX2 BED LOW AND LOCKED HS MEDS ADMIN AND PT ABLE TO SWALLOW WITH NO DISTRESS RESPERATIONS EVEN AND UNLABORED WILL MONITOR
[2016-06-12 00:15] VITALS: BP 137/50
[2016-06-12 04:30] VITALS: BP 123/47
[2016-06-12 06:11] LABS: INR 1.2 (0.85-1.17); PROTIME 15.1 SECONDS (11.6-15.0)
[2016-06-12 06:40] LABS: HEMATOCRIT 29.4 % (42.0-54.0); HEMOGLOBIN 9.7 g/dL (13.5-17.5); MCH 36.3 pg (26.0-34.0); MCV 110.1 fL (80.0-100.0); PLATELET COUNT 90 10x3/uL (130-400); RBC 2.67 10x6/uL (4.20-6.10); RDW 22.5 % (11.5-14.5); WBC 27.6 10x3/uL (4.8-10.8)
[2016-06-12 06:44] LABS: ANION GAP 11.6 mmol/L (8-16); CALCIUM 9.7 mg/dL (8.5-10.1); CARBON DIOXIDE 32.4 mmol/L (21.0-32.0)
[2016-06-12 06:53] LABS: CREATININE - SERUM 4.3 mg/dL (0.6-1.3)
--- NOTE | 2016-06-12 07:20 | NUR ---
PT REC'D FROM ENRIQUE LIAO. RESTING IN BED WITH BREAKFAST TRAY IN ROOM. AAOX4. NO COMPLAINTS OF PAIN. STATES BOTTOM IS SORE AND HE WOULD LIKE TO GET UP WITH PHYSICAL THERAPY TODAY. STATED I WOULD LET PHYSICAL THERAPY KNOW. CONTINUOUS PULSE OX READING 90% ON 4.5L VIA OXYMIZER. PERSISTENT COUGH PRODUCING THICK BROWN SPUTUM. PT ABLE TO SUCTION SELF. BILAT FINE CRACKLES NOTED TO UPPER LOBES. BILAT LOWER LOBES DIMINISHED. BED LOW, CALL LIGHT IN REACH, DENIES NEEDS. CPOC.
[2016-06-12 07:36] LABS: LYMPHOCYTES 2 % (15-50); NEUTROPHILS 98 % (40-80); PLATELET ESTIMATE DECREASED
[2016-06-12 07:55] VITALS: BP 146/56
--- NOTE | 2016-06-12 08:45 | NUR ---
MORNING MEDS PASSED AT THIS TIME. PHYSICAL THERAPY IN ROOM. ASSISTING PT TO CHAIR AT BEDSIDE. MYCOSTATIN CREAM APPLIED TO GROIN AREA. SON IN ROOM. BED LOW, CALL LIGHT IN REACH, DENIES NEEDS. CPOC.
--- NOTE | 2016-06-12 10:08 | NUR ---
RESP UL ON . IV PATENT. UP IN CHAIR WITH CALL LIGHT IN REACH. WILL CONT. PLAN OF CARE.
[2016-06-12 11:47] VITALS: BP 135/64
[2016-06-12 15:30] VITALS: BP 153/51
--- NOTE | 2016-06-12 19:15 | NUR ---
RECEIVED REPORT, O2-4.5, IV-L.CHEST INFUSE A PORT-SL, ON IST MATTRESS, OSMANIF, R. CHEST PACEMAKER, [id number], DENIES ANY NEEDS, CALL LIGHT IN REACH, WILL CONTINUE TO MONITOR
[2016-06-12 20:10] LABS: AFB SPECIMEN PROCESSING Concentration (())
[2016-06-12 20:26] VITALS: BP 135/43
[2016-06-13 00:35] VITALS: BP 134/58
--- NOTE | 2016-06-13 02:12 | NUR ---
ASSESSMENT COMPLETE, SLEEPING, CALL LIGHT IN REACH
[2016-06-13 04:17] VITALS: BP 164/58
[2016-06-13 05:26] LABS: ANION GAP 16.9 mmol/L (8-16); CALCIUM 9.9 mg/dL (8.5-10.1); CARBON DIOXIDE 26.4 mmol/L (21.0-32.0); POTASSIUM - SERUM 5.3 mmol/L (3.5-5.1)
[2016-06-13 05:28] LABS: BASOPHILS 0.1 % (0.0-2.0); EOSINOPHILS 0 % (0-7); HEMATOCRIT 27.7 % (42.0-54.0); HEMOGLOBIN 9.2 g/dL (13.5-17.5); IMMATURE GRANULOCYTES 2.5 % (0-5); LYMPHOCYTES 2.5 % (15-50); MCH 36.1 pg (26.0-34.0); MCHC 33.2 g/dL (31.0-37.0); MCV 108.6 fL (80.0-100.0); MEAN PLATELET VOLUME 10.7 fL (7.4-10.4); MONOCYTES 4.6 % (2-11); NEUTROPHILS 90.3 % (40-80); PLATELET COUNT 76 10x3/uL (130-400); RBC 2.55 10x6/uL (4.20-6.10); RDW 21.7 % (11.5-14.5); WBC 26.1 10x3/uL (4.8-10.8)
[2016-06-13 05:36] LABS: CREATININE - SERUM 6.5 mg/dL (0.6-1.3)
--- NOTE | 2016-06-13 07:00 | NUR ---
RECEIVED REPORT. ASSUMED CARE OF PATIENT. ALERT/ORIENTED. RESP EVEN AND UNLABORED. CONTINUOUS PULSE OX. 1ST STEP OVERLAY PATENT. DENIES NEEDS AT THIS TIME. CALL LIGHT WITHIN REACH. NO DISTRESS.
--- NOTE | 2016-06-13 07:26 | NUR ---
SLEEPING AT THIS TIME. RESPIRATIONS EVEN AND NON LABORED. CALL LIGHT IN REACH, WILL CONTINUE WITH PLAN OF CARE. SRX2 WITH BED IN LOWEST POSITION AND WHEELS LOCKED.
[2016-06-13 07:41] VITALS: BP 122/57
[2016-06-13 09:18] LABS: MAGNESIUM - SERUM 2.8 mg/dL (1.8-2.4); PHOSPHOROUS 6.7 mg/dL (2.5-4.9)
[2016-06-13 11:39] VITALS: BP 149/75
--- NOTE | 2016-06-13 12:05 | NUR ---
DIETARY REQUEST PLACED FOR PATIENT AT THIS TIME.
--- NOTE | 2016-06-13 15:09 | NUR ---
ASSISTED PATIENT BACK TO BED. CALL LIGHT WITHIN REACH. NO DISTRESS. DENIES NEEDS AT THIS TIME.
[2016-06-13 15:21] VITALS: BP 134/58
--- NOTE | 2016-06-13 17:10 | NUR ---
SITTING IN BED. CONSUMIN PM MEAL AT THIS TIME. NO DISTRESS. CALL LIGHT WITHIN REACH.
--- NOTE | 2016-06-13 18:03 | NUR ---
SITTING UP IN BED CONVERSING ON TELEPHONE. CALL LIGHT WITHIN REACH. NO DISTRESS.
--- NOTE | 2016-06-13 19:30 | NUR ---
VISITING WITH HIS BROADCAST OPERATIONS DIRECTOR AT BEDSIDE. O2 @ 4.5 L. RESP UNLAB, LEFT CHEST IP INTACT AND LOCKED. LEFT AVF WITH + BRUIT AND THRILL NOTED. TELEMETRY IN PLACE SHOWING HR PACED IN THE 60/S. ON FIRST STEP OVERLAY. FOR C & C, TURNING Q 2 HOURS FOR CONTINUED C & C. MARKO WELL. SCDS ON TO BILAT LOWER LEGS.HOB UP SR UP X2, C/L IN REACH. CONTINUE TO MONITOR.
[2016-06-13 20:30] VITALS: BP 102/50
[2016-06-14 00:30] VITALS: BP 100/48
[2016-06-14 04:45] VITALS: BP 123/52
[2016-06-14 06:06] LABS: BASOPHILS 0.1 % (0.0-2.0); EOSINOPHILS 0 % (0-7); HEMATOCRIT 27.1 % (42.0-54.0); HEMOGLOBIN 9.2 g/dL (13.5-17.5); IMMATURE GRANULOCYTES 2.5 % (0-5); LYMPHOCYTES 3.7 % (15-50); MCH 36.2 pg (26.0-34.0); MCHC 33.9 g/dL (31.0-37.0); MCV 106.7 fL (80.0-100.0); MEAN PLATELET VOLUME 10.9 fL (7.4-10.4); NEUTROPHILS 87.7 % (40-80); PLATELET COUNT 80 10x3/uL (130-400); RBC 2.54 10x6/uL (4.20-6.10); RDW 21.5 % (11.5-14.5)
[2016-06-14 06:18] LABS: WBC 19.3 10x3/uL (4.8-10.8)
[2016-06-14 06:26] LABS: CALCIUM 9.4 mg/dL (8.5-10.1); CARBON DIOXIDE 22.7 mmol/L (21.0-32.0); CREATININE - SERUM 8.2 mg/dL (0.6-1.3); POTASSIUM - SERUM 5.7 mmol/L (3.5-5.1)
--- NOTE | 2016-06-14 07:37 | NUR ---
AM ROUNDING- PT LAYING IN BED ON BACK WITH EYES OPEN RESTING. ON FIRST STEP OVERLAY MATTRESS. SUCTION DEVICE AT BEDSIDE THAT PT USES ON HIS OWN PER REPORT FOR MOUTH SECRETIONS. ON MONITOR SHOWING PACED, HR 63. ON 02 AT 4.5L VIA NC. LEFT CHEST INFUSAPORT SEEN THAT IS CURRENTLY SALINE LOCKED. RESERVE LEFT ARM FOR AVF, PT DIALYZES ON M, W, AND F. PER REPORT FROM INSTALLMENT LOAN COLLECTOR NURSE CELSO, PT HAS REDNESS TO BOTTOM AREA, WILL CHECK WHEN DOING DAILY SHIFT ASSESSMENT. PT IS CURRENTLY REQUESTING CUP OF HOT WATER. WILL CONTINUE TO MONITOR AND CONTINUE WITH PLAN OF CARE.
[2016-06-14 08:00] VITALS: BP 161/52
--- NOTE | 2016-06-14 08:54 | NUR ---
CALLED DR. GRAFF OFFICE TO INFORM HIM OF PT HAVING A PACEMAKER AND DR. MCKINNEY ORDERED A MRI TODAY. NURSE AT DR. GRAFF OFFICE STATED HE WOULD NOT BE IN CLINIC UNTIL 11AM. NURSE AT OFFICE GAVE ME DR. GRAFF CELL PHONE NUMBER. CALLED AND SPOKE WITH DR. MCKINNEY ON HIS CELLPHONE. DR. MCKINNEY WAS INFORMED ABOUT PT HAVING PACEMKAER, DR. MCKINNEY SAID HE HAD FORGOTTEN ABOUT PT HAVING A PACEMAKER AND FOR ME TO ORDER A CTA OF NECK WITHOUT CONTRAST. WILL DO ORDERED AND LET RADIOLOGY KNOW.
--- NOTE | 2016-06-14 08:59 | NUR ---
CALLED MRI TO LET THEM KNOW PT WILL NOT BE HAVING A MRI. NO ANSWER. HORTENSIA, CASEWORK MANAGER IS CANCELLING MRI.
--- NOTE | 2016-06-14 09:08 | NUR ---
CALLED DR. MCKINNEY TO CLARIFY FOR CT (GEOVANI) ABOUT PTS CTA. DR. MCKINNEY SAID CTA OF CAROTID WITHOUT CONTRAST. INFORMED GEOVANI IN CT OF THIS AND PUT ORDERS IN PER DR. GRAFF TELEPHONE ORDER.
[2016-06-14 12:00] VITALS: BP 133/57
--- NOTE | 2016-06-14 12:44 | NUR ---
PT TO DIALYSIS VIA BED.
[2016-06-14 13:13] LABS: FUNGUS STAIN Final report (())
[2016-06-14 16:00] VITALS: BP 121/50
--- NOTE | 2016-06-14 18:57 | NUR ---
PM ROUNDING- PT SITTING UP IN BED WITH EYES OPEN TALKING ON CELL PHONE. ON MONITOR SHOWING PACED AT 60. ON 02 AT 4.5L VIA NC. LEFT CHEST INFUSAPORT SEEN WITH NS RUNNING AT KVO (10). LEFT ARM RESERVE FOR AVF, + BRUIT AND + THRILL. PT DIALYZED TODAY (NORMAL IS M, W, AND F). ON FIRST STEP OVERALY MATTRESS. PT IS UP WITH MINIMAL ASSIST. NO NEED AT CURRENT TIME. WILL PASS THIS ON TO WASTE PAPER HAMMERMILL OPERATOR NURSE THAT WILL GET HERE AT 1000.
--- NOTE | 2016-06-14 19:55 | NUR ---
RADIOLOGY CALLED AND STATED THEY ARE COMING TO GET PT FOR PROCEDURE SOON AND THAT PT WOULD NEED 20G IV BECAUSE THEY CANNOT USE HIS INFUSA PORT. INSERTED 20G IV CATHETER X1 STICK TO PTS RIGHT FOREARM. TOLERATED WELL. CALLED RADIOLOGY AND INFORMED HER OF THIS.
[2016-06-14 20:00] VITALS: BP 101/59
--- NOTE | 2016-06-14 20:49 | NUR ---
PT TO RADIOLOGY TO GET CTA OF CAROTID WITHOUT CONTRAST.
--- NOTE | 2016-06-14 21:16 | NUR ---
PT BACK FROM RADIOLOGY VIA BED.
--- NOTE | 2016-06-14 23:00 | NUR ---
REPORT RECEIVED AND CARE ASSUMED. AWAKE AND ALERT, SAYS HE IS FEELING DEPRESSED. NO COMPLAINT OF DISCOMFORT. SR UP X 2, ON 1ST STEP OVERLAY MATTRESS. CALL LIGHT IN EASY REACH. SEE SHIFT ASSESSMENT FLOW FOR MORE DETAILS. WILL MONITOR AND CONTINUE PLAN OF CARE.
[2016-06-15] VITALS: BP 145/59
[2016-06-15 04:00] VITALS: BP 151/66
[2016-06-15 05:12] LABS: BASOPHILS 0.2 % (0.0-2.0); EOSINOPHILS 0.5 % (0-7); HEMATOCRIT 27.7 % (42.0-54.0); HEMOGLOBIN 9.4 g/dL (13.5-17.5); IMMATURE GRANULOCYTES 3.1 % (0-5); LYMPHOCYTES 9.7 % (15-50); MCH 36.3 pg (26.0-34.0); MCHC 33.9 g/dL (31.0-37.0); MCV 106.9 fL (80.0-100.0); MEAN PLATELET VOLUME 10.3 fL (7.4-10.4); MONOCYTES 6.7 % (2-11); NEUTROPHILS 79.8 % (40-80); PLATELET COUNT 74 10x3/uL (130-400); RBC 2.59 10x6/uL (4.20-6.10); RDW 21.7 % (11.5-14.5); WBC 17.8 10x3/uL (4.8-10.8)
[2016-06-15 05:38] LABS: ANION GAP 19.9 mmol/L (8-16); CARBON DIOXIDE 22.6 mmol/L (21.0-32.0); CREATININE - SERUM 8.6 mg/dL (0.6-1.3); POTASSIUM - SERUM 5.5 mmol/L (3.5-5.1)
[2016-06-15 08:11] VITALS: BP 183/61
--- NOTE | 2016-06-15 08:14 | NUR ---
RECEIVED REPORT FROM NIGHT NURSE. PATIENT EATING BREAKFAST WILL CONTINUE TO MONITOR.
[2016-06-15 09:19] LABS: FOLATE (FOLIC ACID) - SERUM 19.4 ng/mL (>3.0)
--- NOTE | 2016-06-15 10:42 | NUR ---
Patient Name: HIRAM BURR Encounter No: [id number] : 1940 Primary Insurance: MEDICARE A & B Anticipated DC Date: 06-15-2016 Planned Disposition: Inpatient Rehab External Planned Provider: [facility] INPATIENT REHAB DCP follow-up note: CM RECEIVED INPATIENT REHAB PRESCREENING ORDER. CM MET WITH PT IN ROOM TO DISCUSS DISCHARGE NEEDS AND PLANNING. CM DISCUSSED AVAILABILITY OF HOME HEALTH, REHAB SERVICES AND MEDICAL EQUIPMENT. PT IS STILL WANTING TO RETURN TO INPATIENT REHAB AT [facility]. SPOUSE TO TRANSPORT HOME AT DISCHARGE. IMPORTANT MESSAGE FROM MEDICARE PROVIDED AND EXPLAINED. CM WAITING COMPLETION OF INPATIENT REHAB PRESCREENING. Jason Jaimes, CASE MANAGEMENT
--- NOTE | 2016-06-15 10:48 | NUR ---
PT LAYING IN BED WITH EYES CLOSED RESTING. ON MONITOR SHOWING PACED AT 60. ON 02 AT 4.5L VIA NC. LEFT CHEST INFUSAPORT SEEN WITH NS RUNNING AT 10CC/HR. RESERVE LEFT ARM FOR AVF. PT DIALYZES ON M, W, AND F. IV SEEN TO RIGHT FOREARM THAT IS CURRENTLY SALINE LOCKED. ON FIRST STEP OVERLAY MATTRESS. PER REPORT FROM KAI JUSTICE, CLOTH SPREADER PT HAS POSSIBLE REHAB PLACEMENT. KAI JUSTICE, CLOTH SPREADER IS DOING DAILY SHIFT ASSESSMENT, WILL DO CARE PLAN AND TEACHING. WILL CONTINUE TO MONITOR AND CONTINUE WITH PLAN OF CARE.
--- NOTE | 2016-06-15 11:07 | NUR ---
Nutrition follow-up: Diet: Renal Pt is not happy with a renal diet; however, K has been running high. PO intake ~50% average of meals Labs reviewed Wt: 137# +BM Will continue to provide food choices and honor food preferences within diet restrictions. RDN following.
[2016-06-15 11:58] VITALS: BP 143/95
--- NOTE | 2016-06-15 13:15 | NUR ---
PT IS CURRENTLY LAYING IN BED ON BACK WITH EYES CLOSED RESTING. NO SIGN OF DISTRESS SEEN. WILL CONTINUE TO MONITOR. IS AT BEDSIDE.
[2016-06-15 15:55] VITALS: BP 157/62
--- NOTE | 2016-06-15 16:03 | NUR ---
Patient Name: HIRAM BURR Encounter No: [id number] : 1940 Primary Insurance: MEDICARE A & B Anticipated DC Date: 06-15-2016 Planned Disposition: Inpatient Rehab External Planned Provider: [facility] INPATIENT REHAB DCP follow-up note: RN LORY HUDSON SPOKE TO MARYURI OF INPATIENT REHAB, THEY PLAN TO ACCEPT PT TODAY FOR REHAB. CM NOTIFIED PT WHO IS IN AGREEMENT WITH DISCHARGE TO INPATIENT REHAB. [facility] INPATIENT REHAB TO CONTACT MED 2 NURSE WITH ROOM NUMBER WHEN READY TO ACCEPT PT AND NURSE REPORT. Jason Jaimes, CASE MANAGEMENT
--- NOTE | 2016-06-15 17:45 | NUR ---
PT LAYING IN BED ON BACK WITH EYES OPEN RESTING. AWAITING TO GO DOWNSTAIRS TO REHAB. D/C INSTRUCTIONS AND PAPERWORK GIVEN TO PT, SIGNED BY PT AND PLACED IN CHART. IV TO RIGHT FOREARM REMOVED WITH CATH TIP INTACT. TOLERATED WELL. SECURED SITE WITH 2X2 GAUZE AND TAPE. AWAITING REHAB TO CALL WITH ROOM NUMBER AND TO GIVE REPORT. WILL CONTINUE TO MONITOR.
--- NOTE | 2016-06-15 18:16 | NUR ---
CALLED REPORT AND SPOKE WITH ADI IN REHAB AND GAVE REPORT FOR PT. THA GONZALEZ IS GATHERING PTS BELONGINGS NOW AND WILL TAKE PT DOWN TO REHAB.
[2016-06-21 09:08] LABS: VIRAL - RESULT No virus isolated. (())
--- NOTE | 2016-06-21 10:08 | EC ---
PATIENT:HIRAM BURR DATE OF SERVICE: 06/05/16 SEX: M MEDICAL RECORD: [id number] DATE OF : 42 LOCATION:D.M2 D.210 AGE OF PATIENT: 75 ADMISSION DATE: 06/05/16 REFERRING PHYSICIAN: INTERPRETING PHYSICIAN: RAAD ADAMS MD ECHOCARDIOGRAM REPORT ECHO CHARGES 4 ECHO COMPLETE CLINICAL DIAGNOSIS: CHF RECENT AVR PROCEDURE IN [place] ECHOCARDIOGRAPHIC MEASUREMENTS (adult normal given) AC root (d.<3.7cm) 4.6 LV Septum d (<1.2 cm> 2.2 Valve Excursion 1.6 LV Septum (systole) 2.7 Left Atria (s.<4.0cm> 5.3 LVPW d(<1.2cm) 2.1 RV (d.<2.3cm) 5.8 LVPW (sytole) 2.7 LV diastole(<5.6CM) 7.7 MV E-F(>70mm/sec) LV systole 5.3 LVOT Diameter 1.9 MV exc.(>10mm) Est.ejection fraction (50-75%) Pericardial Effusion N DOPPLER: LVIT A 34.0 E 166 LA RVSP 61 LVOT 126 AOP1/2T Asc. Ao 269 RVOT 151 RA PA 244 AV Gradient Peak 28.95 AV Mean 13.99 AV Area 1.5 MV Gradient Peak 15.78 MV Mean 3.49 MV Area COMMENTS: Refrigeration Systems Installer: Jethro VASQUEZ Electrician Station Assistant:Ira Adams TAPE# PACS DATE OF SERVICE: 06/08/2016 FINDINGS: 1. Left ventricle chamber size is within normal limits. Left ventricular systolic function is normal. Overall ejection fraction estimated at 55%. 2. Left atrium is within normal limits at 5.3 cm. Right atrium and right ventricle chamber sizes are as well moderately dilated. 3. Valvular structures: Aortic valve is replaced with a tissue prosthesis with normal structure and function in its position. The remaining valvular structures have normal structure and motion. ECHOCARDIOGRAM REPORT [id number] HIRAM BURR 4. Doppler interrogation reveals moderate mitral regurgitation, rbirlljf-rw-nrvlwl tricuspid regurgitation, no other valvular insufficiency or stenosis. Pulmonary systolic pressure is elevated estimated at 61 mmHg. 5. No evidence of pericardial effusion or left ventricular thrombus. TRANSINT:[id number] Voice Confirmation ID: [id number] DOCUMENT ID: [id number] RAAD ADAMS MD at 1008 CC: [id number] DICTATION DATE: 06/08/16 1300 NUCLEAR SCIENTIST: 06/08/16 2256 DIS IN 06/15/16 [facility] [address] [place] [id number]
[2016-07-04 08:14] LABS: FUNGUS CULTURE RESULT 1 Candida albicans (())
[2016-07-09 10:17] LABS: FUNGUS MYCOLOGY CULTURE Final report (())
[2016-08-01 14:09] LABS: ACID FAST CULTURE Negative (()); ACID FAST SMEAR Negative (())
== END 2016-06-15 19:04 | DRG 177 ==
LOC: D.M2 15:00
PROVIDERS: Internal Medicine Nephrology; Internal Medicine Pulmonary Disease; ADMIT Internal Medicine Nephrology
PROC: 5A1D60Z (ICD-10-PCS; 2016-06-07)
PROC: 0BB78ZX Excision of Left Main Bronchus, Via Natural or Artificial Opening Endoscopic, Diagnostic (ICD-10-PCS; 2016-06-11)
PROC: 0BB38ZX Excision of Right Main Bronchus, Via Natural or Artificial Opening Endoscopic, Diagnostic (ICD-10-PCS; 2016-06-11)
PROC: 0B958ZX Drainage of Right Middle Lobe Bronchus, Via Natural or Artificial Opening Endoscopic, Diagnostic (ICD-10-PCS; principal; 2016-06-11 10:55)
DX: J69.0 Pneumonitis due to inhalation of food and vomit (principal); J96.21 Acute and chronic respiratory failure with hypoxia; N18.6 End stage renal disease; I50.21 Acute systolic (congestive) heart failure; I13.2 Hypertensive heart and chronic kidney disease with heart failure and with stage 5 chronic kidney disease, or end stage renal disease; I48.92 Unspecified atrial flutter; E87.1 Hypo-osmolality and hyponatremia; I69.354 Hemiplegia and hemiparesis following cerebral infarction affecting left non-dominant side; R04.89 Hemorrhage from other sites in respiratory passages; Z99.2 Dependence on renal dialysis; I25.10 Atherosclerotic heart disease of native coronary artery without angina pectoris; D63.1 Anemia in chronic kidney disease; I48.91 Unspecified atrial fibrillation; I27.2 Other secondary pulmonary hypertension; I08.1 Rheumatic disorders of both mitral and tricuspid valves; R04.0 Epistaxis; D69.6 Thrombocytopenia, unspecified; E87.5 Hyperkalemia; G47.33 Obstructive sleep apnea (adult) (pediatric); Z95.2 Presence of prosthetic heart valve; Z95.0 Presence of cardiac pacemaker; Z85.46 Personal history of malignant neoplasm of prostate; Z91.19 Patient's noncompliance with other medical treatment and regimen

== ENCOUNTER 2016-06-15 18:36 | Inpatient (IN) | payer MEDICARE, BC ==
[~2016-06-15] VITALS: Ht 170.2 cm; Wt 72.0 kg
[2016-06-15 19:15] VITALS: BP 115/63
[2016-06-16 00:10] VITALS: BP 126/52
[2016-06-16 01:05] VITALS: BP 110/66
--- NOTE | 2016-06-16 07:07 | DS ---
PATIENT:HIRAM BURR :[birth year] MEDICAL RECORD: [id number] DISCHARGE SUMMARY ADMISSION DATE: 06/15/16 DISCHARGE DATE: Greater than 30 minutes was spent with his discharge. HISTORY OF PRESENT ILLNESS: This is a nice gentleman who was admitted with shortness of breath over at [facility]. He needed aggressive ultrafiltration and almost daily dialysis. He improved significantly along with IV antibiotics and was transferred back over here to rehab where he developed hemoptysis. Pulmonary did ask ____ and place him back on his aspirin and Plavix for managing his volume status with dialysis now as well as Lasix. PHYSICAL EXAMINATION: GENERAL: He is alert and oriented times 3. HEENT: Normocephalic, atraumatic. VITAL SIGNS: 110/72 by the MD, heart rate 60-66. NECK: No JVD or thyromegaly. CHEST: Regular rhythm. No rub or gallop. Slightly irregular with occasional ectopic beat. LUNGS: Have crackles at the bases. ABDOMEN: Nontender. No focal neurologic deficit, but globally weak. Lab is consistent with ESRD. We are continuing his medications down stairs. I did decrease his Solu-Medrol to prednisone 20 a day and I believe pulmonary asked to discontinue his 3 antibiotics. DISPOSITION: Stable on discharge, renal diet, activity for rehabilitation. TRANSINT:[id number] Voice Confirmation ID: [id number] DOCUMENT ID: [id number] ANAYELI MANRIQUE MD at [id number] CC: [id number] DICTATION DATE: 06/15/16 1513 CRYSTALLIZER OPERATOR: 06/15/162014 ADM IN [place] [id number] [place] [address]
[2016-06-16 09:12] VITALS: Ht 170.2 cm; Wt 72.0 kg
[2016-06-16 09:19] VITALS: BP 111/58
[2016-06-16 19:00] VITALS: BP 138/48
[2016-06-17 00:10] VITALS: BP 126/52
[2016-06-17 08:35] LABS: ANION GAP 17.1 mmol/L (8-16); CALCIUM 8.9 mg/dL (8.5-10.1); CARBON DIOXIDE 23.3 mmol/L (21.0-32.0); CREATININE - SERUM 7.6 mg/dL (0.6-1.3); POTASSIUM - SERUM 5.4 mmol/L (3.5-5.1)
[2016-06-17 09:04] LABS: BASOPHILS 0.2 % (0.0-2.0); EOSINOPHILS 0.8 % (0-7); HEMATOCRIT 24.8 % (42.0-54.0); HEMOGLOBIN 8.4 g/dL (13.5-17.5); IMMATURE GRANULOCYTES 3.8 % (0-5); LYMPHOCYTES 6.5 % (15-50); MCH 36.2 pg (26.0-34.0); MCHC 33.9 g/dL (31.0-37.0); MCV 106.9 fL (80.0-100.0); MEAN PLATELET VOLUME 11.6 fL (7.4-10.4); MONOCYTES 10.4 % (2-11); NEUTROPHILS 78.3 % (40-80); PLATELET COUNT 64 10x3/uL (130-400); RBC 2.32 10x6/uL (4.20-6.10); RDW 22.2 % (11.5-14.5); WBC 16.8 10x3/uL (4.8-10.8)
--- NOTE | 2016-06-17 10:06 | RHP ---
PATIENT: HIRAM BURR MEDICAL RECORD: [id number] ACCOUNT: [id number] LOCATION:[id number] : 41 ADMISSION DATE: 06/15/16 REHABILITATION HISTORY AND PHYSICAL EXAMINATION POST ADMISSION PHYSICIAN EXAMINATION Post-Admission Physical Examination and History and Physical DATE OF ADMISSION TO REHAB: 06/15/2016 ADMITTING DIAGNOSES: Uremic myopathy, chronic end-stage requiring hemodialysis. HISTORY OF PRESENT ILLNESS: The patient admitted to inpatient rehab for uremic myopathy for chronic end-stage renal disease requiring hemodialysis. He is a 75-year-old gentleman with end-stage renal disease, on hemodialysis who underwent an aortic valve replacement, pacemaker placement on May 04 at [facility] after AV replacement. He had a CVA, was transferred to [facility] inpatient rehab on May 10 for right CVA with left-sided hemiparesis and on May 17, develop respiratory difficulty, he is believing he might have aspirate while eating crackers, he was sent to Emergency Room, he was found to have pneumonia with bilateral infiltrates and admitted to ICU requiring mechanical ventilation. He is transferred to [place] inpatient rehab on May 25. He was improving with PT in rehab, was able to walk some distance with walker; however, the patient begun to have hemoptysis, after 3-4 days hemoptysis is getting worse and blood was dark tinged. He was on Plavix and aspirin. The patient was still on antibiotics and prednisone from previous pneumonia. He was transferred to [facility] due to hemoptysis needing pulmonary workup. D-dimer was elevated. CT that showed no PEs, but bilateral pleural effusions. Pulmonary was consulted for further evaluation. He has had proximal muscle weakness, poor in nutritional intake and decline in functional mobility during his acute hospital stay. He continues on hemodialysis 3 times a week. He was independent prior to this event with both his mobility and ADLs. Currently, he is standby assistance and max assist with his ADLs. He is moderate assist to total assist with his mobility and he plans to return home with his . He is O2 dependent at this time. COMORBIDITIES: In this patient include hemoptysis, chronic end-stage renal disease, anemia, chronic AFib, chronic weakness, chronic aortic valve prosthesis, end-stage renal disease, anemia of chronic disease and coronary artery disease. PAST MEDICAL HISTORY: Significant for cataracts, coronary artery disease, atrial flutter, pneumonia, prostate cancer, multiple myeloma. PAST SURGICAL HISTORY: Includes cataract surgery, tonsillectomy, adenoidectomy, prostatectomy, bilateral CEA, he has had left arm surgery and a cath placement. ALLERGIES: SULFA. CURRENT MEDICATIONS: Include Dulcolax suppositories p.r.n., saline nasal spray, nystatin 5 cc q.a.c. and q.h.s. He is on folic acid daily, prednisone 20 mg daily, Protonix 40 mg daily, Lactinex 1 tab daily, Renagel 1600 mg t.i.d. with meals, lactulose 60 cc daily, Apresoline 50 mg daily, furosemide 80 mg daily, Multaq 400 mg b.i.d. with meals, atorvastatin 20 mg at bedtime. He is on Procrit 40,000 units Tuesday, Tuesday and Tuesday; Plavix 75 mg daily, aspirin HISTORY AND PHYSICAL [id number] HOUSTON,HIRAM BOUCHER chewable 81 mg daily, DuoNeb updrafts as needed. He is on glucosamine chondroitin sulfate t.i.d., Colace 100 mg t.i.d. He is on zolpidem 10 mg q.h.s., hydrocodone one tab q.4 hours p.r.n. pain, Xanax 0.25 mg b.i.d. p.r.n. He is on Cardura 2 mg q.h.s., clonidine 0.1 t.i.d. p.r.n. He is on resinic epinephrine as needed and Amrita 60 mg b.i.d. HABITS: No alcohol or tobacco use. FAMILY HISTORY: Noncontributory. SOCIAL HISTORY: The patient [place] and get back with his . REVIEW OF SYSTEMS: GENERAL: Does complain of weakness or fatigue. HEENT: He denies cold, cough, or congestion. CARDIOVASCULAR: Denies any chest pain. LUNGS: Does complain of shortness of breath. PHYSICAL EXAMINATION: VITAL SIGNS: Stable, afebrile. GENERAL: Elderly gentleman in no acute distress, alert upon exam. HEENT: Normocephalic, atraumatic. Mucosa moist. NECK: Supple. No lymphadenopathy. LUNGS: Coarse breath sounds bilaterally. CARDIOVASCULAR: Regular rate and rhythm. ABDOMEN: Benign. EXTREMITIES: No clubbing, cyanosis, or edema. NEUROLOGIC: Intact. ASSESSMENT: This is a 75-year-old gentleman admitted to the rehab with a working diagnosis of uremic myopathy, he is continued to be followed by renal at this time. The patient has potential to make improvement. We instituted the following multidisciplinary therapies including to, but not limited to physical, occupational, respiratory, speech, nutritional services, prosthetics and orthotics. Given his complex medical condition, risk of further medical complications, rehabilitation services cannot be provided at a lower level of care such as a assisted facility. PLAN: 1. Admit to [facility] rehab for intensive inpatient therapy to include the following disciplines: A. Physical therapy to improve gait, all transfer skills and bed mobility to a modified independent level. B. Occupational therapy to improved activities of daily living to a modified independent level. C. Case management to assist with discharge planning and placement options. D. Nutrition to assist with nutritional needs. E. Rehabilitation nursing to assist in monitoring the patient's underlying medical conditions and to assist with any type of bowel or bladder management. 2. The patient's current medications and medical care will be continued. 3. The patient will be placed on standard fall precautions. 4. We will watch his renal functions closely and follow along with nephrology. 5. We will discuss this patient during care team staff meeting this week. HISTORY AND PHYSICAL [id number] HIRAM BURR TRANSINT:[id number] Voice Confirmation ID: [id number] DOCUMENT ID: [id number] GABRIELLA FONTANEZ MD at 1006 CC: [id number] DICTATION DATE: 06/16/16 0904 DISTRICT EXTENSION SERVICE AGENT: 06/16/16 1051 ADM IN [facility] [address] [place] [address]
[2016-06-17 12:07] VITALS: BP 126/57
[2016-06-17 19:00] VITALS: BP 148/52
[2016-06-18 00:05] VITALS: BP 142/51
[2016-06-18 05:14] VITALS: BP 147/59
[2016-06-18 07:38] LABS: BASOPHILS 0.1 % (0.0-2.0); EOSINOPHILS 0.4 % (0-7); HEMATOCRIT 24.8 % (42.0-54.0); HEMOGLOBIN 8.5 g/dL (13.5-17.5); IMMATURE GRANULOCYTES 4.2 % (0-5); LYMPHOCYTES 5.5 % (15-50); MCH 36.6 pg (26.0-34.0); MCHC 34.3 g/dL (31.0-37.0); MCV 106.9 fL (80.0-100.0); MEAN PLATELET VOLUME 11.1 fL (7.4-10.4); MONOCYTES 10.5 % (2-11); NEUTROPHILS 79.3 % (40-80); PLATELET COUNT 59 10x3/uL (130-400); RBC 2.32 10x6/uL (4.20-6.10); WBC 15.6 10x3/uL (4.8-10.8)
[2016-06-18 07:56] LABS: ANION GAP 20.5 mmol/L (8-16); CALCIUM 8.6 mg/dL (8.5-10.1); CARBON DIOXIDE 21.1 mmol/L (21.0-32.0); CREATININE - SERUM 9.2 mg/dL (0.6-1.3); POTASSIUM - SERUM 5.6 mmol/L (3.5-5.1)
[2016-06-18 19:00] VITALS: BP 17/61
[2016-06-19 00:57] VITALS: BP 113/56
[2016-06-19 06:05] VITALS: BP 147/60
[2016-06-19 07:00] VITALS: BP 116/62
[2016-06-19 07:13] LABS: BASOPHILS 0.1 % (0.0-2.0); EOSINOPHILS 0.8 % (0-7); HEMATOCRIT 25.7 % (42.0-54.0); HEMOGLOBIN 8.6 g/dL (13.5-17.5); IMMATURE GRANULOCYTES 4.1 % (0-5); LYMPHOCYTES 5.7 % (15-50); MCH 36.4 pg (26.0-34.0); MCHC 33.5 g/dL (31.0-37.0); MCV 108.9 fL (80.0-100.0); MEAN PLATELET VOLUME 11.4 fL (7.4-10.4); MONOCYTES 12.5 % (2-11); NEUTROPHILS 76.8 % (40-80); PLATELET COUNT 69 10x3/uL (130-400); RBC 2.36 10x6/uL (4.20-6.10); RDW 22.3 % (11.5-14.5); WBC 13.8 10x3/uL (4.8-10.8)
[2016-06-19 07:26] LABS: % SATURATION 51 % (15-55); IRON 116 ug/dl (35-150); TOTAL IRON BIND CAPACITY 226 ug/dl (260-445); UNSAT IRON BIND CAPACITY 110 ug/dl (150-375)
[2016-06-19 08:08] LABS: CALCIUM 8.6 mg/dL (8.5-10.1); VANCOMYCIN - RANDOM 22.8 ug/mL (10.0-20.0)
[2016-06-19 08:18] LABS: ANION GAP 12.3 mmol/L (8-16); CARBON DIOXIDE 27.9 mmol/L (21.0-32.0); CREATININE - SERUM 5.5 mg/dL (0.6-1.3); POTASSIUM - SERUM 4.2 mmol/L (3.5-5.1)
[2016-06-19 15:00] VITALS: BP 80/42
[2016-06-19 19:29] VITALS: BP 71/46
[2016-06-19 23:38] VITALS: BP 134/61
[2016-06-20 06:13] VITALS: BP 130/61
[2016-06-20 12:00] VITALS: BP 130/70
[2016-06-20 12:29] VITALS: BP 130/70
[2016-06-20 18:42] VITALS: BP 128/58
[2016-06-20 22:14] VITALS: BP 161/62
[2016-06-21 05:06] VITALS: BP 141/56
[2016-06-21 06:05] LABS: BASOPHILS 0.1 % (0.0-2.0); EOSINOPHILS 0.3 % (0-7); LYMPHOCYTES 8.2 % (15-50); MCHC 34.6 g/dL (31.0-37.0); MEAN PLATELET VOLUME 12.1 fL (7.4-10.4); MONOCYTES 7.2 % (2-11); NEUTROPHILS 79.2 % (40-80); PLATELET COUNT 58 10x3/uL (130-400); RDW 23.6 % (11.5-14.5); WBC 14.4 10x3/uL (4.8-10.8)
[2016-06-21 06:08] LABS: HEMATOCRIT 32.4 % (42.0-54.0); HEMOGLOBIN 11.2 g/dL (13.5-17.5); MCV 101.3 fL (80.0-100.0)
[2016-06-21 06:39] LABS: ANION GAP 15.7 mmol/L (8-16); CALCIUM 9.1 mg/dL (8.5-10.1); CARBON DIOXIDE 25.8 mmol/L (21.0-32.0); CREATININE - SERUM 6.3 mg/dL (0.6-1.3); POTASSIUM - SERUM 4.5 mmol/L (3.5-5.1); VANCOMYCIN - RANDOM 13.9 ug/mL (10.0-20.0)
[2016-06-21 12:00] VITALS: BP 118/57
[2016-06-21 18:02] VITALS: BP 108/85
[2016-06-21 19:37] VITALS: BP 108/58
[2016-06-21 23:24] VITALS: BP 101/46
[2016-06-22 05:13] VITALS: BP 134/55
[2016-06-22 09:04] VITALS: BP 91/49
[2016-06-22 19:15] VITALS: BP 137/58
[2016-06-22 23:50] VITALS: BP 141/56
[2016-06-23 05:35] VITALS: BP 137/56
[2016-06-23 06:16] LABS: BASOPHILS 0.1 % (0.0-2.0); EOSINOPHILS 0.4 % (0-7); HEMATOCRIT 31.5 % (42.0-54.0); HEMOGLOBIN 10.5 g/dL (13.5-17.5); IMMATURE GRANULOCYTES 1.8 % (0-5); LYMPHOCYTES 3.9 % (15-50); MCH 34.9 pg (26.0-34.0); MCHC 33.3 g/dL (31.0-37.0); MCV 104.7 fL (80.0-100.0); MEAN PLATELET VOLUME 11.3 fL (7.4-10.4); MONOCYTES 7.4 % (2-11); NEUTROPHILS 86.4 % (40-80); RBC 3.01 10x6/uL (4.20-6.10); RDW 23.8 % (11.5-14.5); WBC 13.7 10x3/uL (4.8-10.8)
[2016-06-23 06:38] LABS: ANION GAP 13.5 mmol/L (8-16); CALCIUM 9.1 mg/dL (8.5-10.1); CARBON DIOXIDE 27.7 mmol/L (21.0-32.0); POTASSIUM - SERUM 4.2 mmol/L (3.5-5.1)
[2016-06-23 07:23] LABS: PLATELET COUNT 46 10x3/uL (130-400)
[2016-06-23 07:57] VITALS: BP 105/52
[2016-06-23 12:47] VITALS: BP 105/57
[2016-06-23 18:00] VITALS: BP 98/43
[2016-06-23 20:04] VITALS: BP 95/55
[2016-06-24 00:36] VITALS: BP 126/60
[2016-06-24 06:20] VITALS: BP 142/58
[2016-06-24 12:13] VITALS: BP 98/54
[2016-06-24 18:00] VITALS: BP 105/57
[2016-06-25 00:59] VITALS: BP 115/63
[2016-06-25 04:54] LABS: BASOPHILS 0.1 % (0.0-2.0); EOSINOPHILS 0.3 % (0-7); HEMATOCRIT 31.1 % (42.0-54.0); HEMOGLOBIN 10.4 g/dL (13.5-17.5); IMMATURE GRANULOCYTES 1.3 % (0-5); LYMPHOCYTES 5.8 % (15-50); MCH 34.7 pg (26.0-34.0); MCHC 33.4 g/dL (31.0-37.0); MCV 103.7 fL (80.0-100.0); MEAN PLATELET VOLUME 10.7 fL (7.4-10.4); MONOCYTES 5.7 % (2-11); NEUTROPHILS 86.8 % (40-80); RDW 23.4 % (11.5-14.5); WBC 15.9 10x3/uL (4.8-10.8)
[2016-06-25 04:55] LABS: PLATELET COUNT 46 10x3/uL (130-400)
[2016-06-25 05:04] LABS: ANION GAP 14.5 mmol/L (8-16); CALCIUM 9.4 mg/dL (8.5-10.1); CARBON DIOXIDE 26.1 mmol/L (21.0-32.0); CREATININE - SERUM 6.1 mg/dL (0.6-1.3); PHOSPHOROUS 5.2 mg/dL (2.5-4.9); POTASSIUM - SERUM 4.6 mmol/L (3.5-5.1)
[2016-06-25 05:24] VITALS: BP 141/60
[2016-06-25 08:37] VITALS: BP 103/45
[2016-06-25 12:46] VITALS: BP 125/53
[2016-06-25 20:16] VITALS: BP 111/54
[2016-06-25 23:17] VITALS: BP 114/64
[2016-06-26 05:40] VITALS: BP 109/75
[2016-06-26 07:00] VITALS: BP 103/52
[2016-06-26 12:00] VITALS: BP 126/59
[2016-06-26 18:30] VITALS: BP 114/51
[2016-06-26 20:00] VITALS: BP 139/66
[2016-06-27 00:05] VITALS: BP 155/75
[2016-06-27 05:16] VITALS: BP 169/61
[2016-06-27 07:00] VITALS: BP 116/65
[2016-06-27 12:28] VITALS: BP 114/62
[2016-06-27 18:39] VITALS: BP 118/66
[2016-06-27 19:00] VITALS: BP 129/56
[2016-06-28 00:10] VITALS: BP 143/58
[2016-06-28 05:56] VITALS: BP 113/49
[2016-06-28 07:02] LABS: BASOPHILS 0.1 % (0.0-2.0); EOSINOPHILS 0.3 % (0-7); HEMATOCRIT 31.5 % (42.0-54.0); HEMOGLOBIN 10.2 g/dL (13.5-17.5); IMMATURE GRANULOCYTES 1.6 % (0-5); LYMPHOCYTES 5.6 % (15-50); MCH 34.6 pg (26.0-34.0); MCHC 32.4 g/dL (31.0-37.0); MCV 106.8 fL (80.0-100.0); MEAN PLATELET VOLUME 11.6 fL (7.4-10.4); MONOCYTES 10.3 % (2-11); NEUTROPHILS 82.1 % (40-80); PLATELET COUNT 58 10x3/uL (130-400); RBC 2.95 10x6/uL (4.20-6.10); RDW 24.3 % (11.5-14.5); WBC 12.4 10x3/uL (4.8-10.8)
[2016-06-28 07:14] LABS: CALCIUM 9.6 mg/dL (8.5-10.1); CARBON DIOXIDE 29.5 mmol/L (21.0-32.0); CREATININE - SERUM 5.1 mg/dL (0.6-1.3); POTASSIUM - SERUM 4.5 mmol/L (3.5-5.1)
[2016-06-28 10:55] VITALS: BP 136/58
[2016-06-28 18:11] VITALS: BP 138/63
[2016-06-28 19:00] VITALS: BP 133/60
[2016-06-29 01:08] VITALS: BP 126/55
[2016-06-29 06:00] VITALS: BP 132/58
[2016-06-29 09:31] VITALS: BP 141/53
[2016-06-30 00:25] VITALS: BP 130/53
[2016-06-30 05:33] VITALS: BP 160/56
[2016-06-30 07:00] VITALS: BP 110/46
[2016-06-30 14:00] VITALS: BP 144/70
[2016-06-30 18:00] VITALS: BP 127/50
[2016-06-30 23:10] VITALS: BP 146/52
[2016-07-01 06:22] VITALS: BP 136/57
[2016-07-01 06:46] LABS: BASOPHILS 0.4 % (0.0-2.0); EOSINOPHILS 0.1 % (0-7); HEMATOCRIT 32.9 % (42.0-54.0); HEMOGLOBIN 10.6 g/dL (13.5-17.5); IMMATURE GRANULOCYTES 5.6 % (0-5); MCH 35.1 pg (26.0-34.0); MCHC 32.2 g/dL (31.0-37.0); MCV 108.9 fL (80.0-100.0); MEAN PLATELET VOLUME 12.2 fL (7.4-10.4); MONOCYTES 6.6 % (2-11); NEUTROPHILS 76.3 % (40-80); RBC 3.02 10x6/uL (4.20-6.10); RDW 24.1 % (11.5-14.5)
[2016-07-01 06:47] LABS: PLATELET COUNT 75 10x3/uL (130-400)
[2016-07-01 06:56] LABS: ANION GAP 12.9 mmol/L (8-16); CALCIUM 9.8 mg/dL (8.5-10.1); CARBON DIOXIDE 28.3 mmol/L (21.0-32.0); CREATININE - SERUM 4.8 mg/dL (0.6-1.3); POTASSIUM - SERUM 4.2 mmol/L (3.5-5.1)
[2016-07-01] MEDS ORDERED: NYSTATIN ORAL SU5 ML PO (11:34)
[2016-07-01] MEDS ORDERED: MEGACE400 MG/10 PO (11:34)
[2016-07-01] MEDS ORDERED: TESSALON PERLE100 MG PO (11:36)
[2016-07-01] MEDS ORDERED: MUCINEX DM ER1 EAC1 PO (11:36)
[2016-07-01 12:00] VITALS: BP 113/54
== END 2016-07-01 17:30 | DRG 91 ==
LOC: D.REHAB 18:36
PROVIDERS: Family Medicine; Internal Medicine Nephrology; ADMIT Emergency Medicine
PROC: 5A1D60Z (ICD-10-PCS; principal; 2016-06-16)
DX: G72.89 Other specified myopathies (principal); N18.6 End stage renal disease; R04.2 Hemoptysis; I12.0 Hypertensive chronic kidney disease with stage 5 chronic kidney disease or end stage renal disease; I69.354 Hemiplegia and hemiparesis following cerebral infarction affecting left non-dominant side; Z99.2 Dependence on renal dialysis; Z95.0 Presence of cardiac pacemaker; I48.2 Chronic atrial fibrillation; R53.1 Weakness; I25.10 Atherosclerotic heart disease of native coronary artery without angina pectoris; D63.1 Anemia in chronic kidney disease

== ENCOUNTER 2016-07-12 18:34 | Inpatient (IN) | payer MEDICARE, BC ==
[~2016-07-12] VITALS: Ht 174 cm; Wt 74.5 kg
--- NOTE | ~2016-07-12 | CN ---
PATIENT NAME:HIRAM GARCIA MEDICAL RECORD: [id number] : 42 LOCATION:MAYE.2302 ADMIT DATE: 07/12/16 ACCOUNT: [id number] CONSULTING PHYSICIAN: MARCELLA LANDIN MD REFERRING PHYSICIAN: ANAYELI MONTGOMERY MD DATE OF CONSULTATION: 07/13/2016 CONSULT REQUESTING PHYSICIAN: Anayeli Montgomery MD. REASON FOR CONSULTATION: Fgohi-yg-yjaqfoc hypoxic respiratory failure, pulmonary edema, possible underlying pneumonia. HISTORY OF PRESENT ILLNESS: Mr. Garcia is a 75-year-old gentleman, who is now a correction resident after a CVA and generalized weakness. According to the patient, since yesterday, he has worsening shortness of breath, wheezing, orthopnea. He has a PND. The patient was brought into the ER. The ABG showed a PaO2 of 51 on 55% oxygen. Chest x-ray showed flash pulmonary edema. He dialyze today. He is feeling a little bit better. The patient denies any fever or chills. No night sweats. REVIEW OF SYSTEMS: Mainly in the history of present illness. PAST MEDICAL HISTORY: 1. End-stage renal disease. 2. Multiple myeloma. 3. Hypertension. 4. Anemia of chronic disease. 5. Atrial fibrillation. 6. History of CA of prostate. 7. Peripheral vascular disease. 8. Osteoporosis. 9. History of hemoptysis on the last admission. 10. Status post left CVA. PAST SURGICAL HISTORY: 1. He has a percutaneous valve replacement. 2. Status post pacemaker placement. 3. Radical prostatectomy. 4. History of bone marrow transplant. 5. Cataract surgery. 6. Carotid endarterectomy. ALLERGIES: HE IS ALLERGIC TO SULFA. PRESENT MEDICATIONS: He is on Zosyn. His other medication is reviewed. PERSONAL AND SOCIAL HISTORY: The patient is . He lives with his . He is an ex-smoker. He is a nondrinker. There is no documented COPD. PHYSICAL EXAMINATION: GENERAL: Now, the patient is lying comfortably in bed. He is not in acute distress. VITAL SIGNS: The blood pressure is 147/58, pulse is 60, respirations 16, temperature 98.2, and SpO2 is 97% on Venturi mask. HEENT: Conjunctivae are pale. Sclerae nonicteric. CONSULT REPORT [id number] HIRAM GARCIA NECK: Supple. There is elevated JVD. CHEST: There are bilateral crackles. No wheezing. HEART: Rate and rhythm irregular. Normal sound. No murmur. ABDOMEN: Soft, bowel sounds present. No hepatosplenomegaly. RECTAL: Deferred. EXTREMITIES: No cyanosis, no clubbing, no pedal edema. SKIN: Warm, normal turgor. CENTRAL NERVOUS SYSTEM: The patient is awake and alert. There is no obvious cranial nerve abnormality. The gait was not tested. CHEST RADIOGRAPH: Showed the flash pulmonary edema. OTHER LABORATORY DATA: CBC: WBC is 17.8, hemoglobin 11.5, hematocrit 34.9, platelet count 115, neutrophils are 77.9%. Chemistry: Sodium is 135, potassium 4.5, BUN is 58, creatinine is 4.6. Glucose is 96. IMPRESSION: 1. Wnemt-ci-bditgxo hypoxic respiratory failure. 2. Pulmonary edema. 3. Leukocytosis. 4. Fluid overload with possible hospital-acquired pneumonia. He is a correction resident and recent hospitalization. 5. End-stage renal disease. 6. Anemia of chronic disease. 7. Atrial fibrillation. 8. Status post cerebrovascular accident with left hemiparesis. 9. History of multiple myeloma. RECOMMENDATION: 1. Continue Zosyn. I will add vancomycin to cover for Gram-positive cocci, questionable MRSA, hospital-acquired pneumonia. 2. Agree with the dialysis, almost 4 L of fluid were taken out today. He is going to dialysis tomorrow again. 3. Albuterol/ipratropium nebulizer as needed. 4. Supplemental oxygen to keep the SpO2 above 92%. 5. Follow up labs and chest radiograph in the morning. Dr. Montgomery, once again, thanks for involving me in the care of Mr. Garcia. TRANSINT:[id number] Voice Confirmation ID: [id number] DOCUMENT ID: [id number] MARCELLA LANDIN MD CC: ANAYELI MONTGOMERY MD [id number] DICTATION DATE: 07/13/16 1205 ELEMENT BURNER: 07/13/16 1240 [place] [address]
[~2016-07-12 18:34] MED LIST changes: +MEGACE400 MG/10 PO; +MUCINEX DM ER1 EAC1 PO; +NYSTATIN ORAL SU5 ML PO; +TESSALON PERLE100 MG PO
[2016-07-12 20:13] LABS: BASOPHILS 0.7 % (0.0-2.0); EOSINOPHILS 0.4 % (0-7); HEMATOCRIT 34.9 % (42.0-54.0); HEMOGLOBIN 11.5 g/dL (13.5-17.5); LYMPHOCYTES 4.5 % (15-50); MCH 36.6 pg (26.0-34.0); MCV 111.1 fL (80.0-100.0); MEAN PLATELET VOLUME 11.1 fL (7.4-10.4); MONOCYTES 8.5 % (2-11); NEUTROPHILS 77.9 % (40-80); RBC 3.14 10x6/uL (4.20-6.10); RDW 24.6 % (11.5-14.5); WBC 17.8 10x3/uL (4.8-10.8)
[2016-07-12 20:15] LABS: PLATELET COUNT 115 10x3/uL (130-400)
[2016-07-12 20:45] LABS: ALBUMIN 2.6 g/dL (3.4-5.0); ALKALINE PHOSPHATASE 145 U/L (46-116); ALT (SGPT) 24 U/L (10-68); BILIRUBIN - TOTAL 0.96 mg/dL (0.2-1.3); CALC OSMOLALITY 284 mosm/kg (275-300); CALCIUM 9.3 mg/dL (8.5-10.1); CARBON DIOXIDE 23.9 mmol/L (21.0-32.0); CHLORIDE - SERUM 97 mmol/L (98-107); CREATININE - SERUM 4.1 mg/dL (0.6-1.3); GLUCOSE 89 mg/dL (74-106); PROTEIN - SERUM 7.1 g/dL (6.4-8.2); SODIUM 136 mmol/L (136-145); UREA NITROGEN 52 mg/dL (7-18); eGFR NON AFRICAN AMERICAN 15 mL/min (90-120)
[2016-07-12 21:01] LABS: CKMB 2.1 U/L (0.0-3.6); CREATINE KINASE 14 UL (21-232)
[2016-07-12 21:05] LABS: TROPONIN-I 0.553 ng/mL (0.000-0.060)
[2016-07-12 22:06] LABS: PRO BNP 88538 pg/mL (0-125)
[2016-07-12 22:57] VITALS: BP 147/83; BMI 24.0
[2016-07-12 23:00] VITALS: BP 147/58
--- NOTE | 2016-07-12 23:07 | NUR ---
PT RECIEVED. VSS. C/O OF PAIN 11/18 RADIATING FROM KNEES. WILL PAGED PHYSICIAN. WILL CONTINUE TO MONITOR.
[2016-07-13] VITALS (24 sets, daily range): BP systolic 93–153; BP diastolic 44–67; Ht 174 cm; Wt 74.5 kg
--- NOTE | 2016-07-13 03:21 | NUR ---
REASSESSMENT COMPLETE PER FLOW SHEET. NO NEW FINDINGS. VSS. WILL CONTINUE TO MONITOR.
[2016-07-13 03:48] LABS: BASOPHILS 0.6 % (0.0-2.0); EOSINOPHILS 0.2 % (0-7); HEMATOCRIT 32.2 % (42.0-54.0); HEMOGLOBIN 10.4 g/dL (13.5-17.5); IMMATURE GRANULOCYTES 7.8 % (0-5); LYMPHOCYTES 4.6 % (15-50); MCH 35.9 pg (26.0-34.0); MCHC 32.3 g/dL (31.0-37.0); MEAN PLATELET VOLUME 10.1 fL (7.4-10.4); MONOCYTES 8.7 % (2-11); NEUTROPHILS 78.1 % (40-80); PLATELET COUNT 92 10x3/uL (130-400); WBC 16.2 10x3/uL (4.8-10.8)
[2016-07-13 03:54] LABS: INR 1.22 (0.85-1.17); PROTIME 15.3 SECONDS (11.6-15.0)
[2016-07-13 04:01] LABS: CALCIUM 9.2 mg/dL (8.5-10.1); CARBON DIOXIDE 25.5 mmol/L (21.0-32.0); CREATININE - SERUM 4.6 mg/dL (0.6-1.3); MAGNESIUM - SERUM 2.2 mg/dL (1.8-2.4); PHOSPHOROUS 4.4 mg/dL (2.5-4.9); POTASSIUM - SERUM 4.5 mmol/L (3.5-5.1)
--- NOTE | 2016-07-13 08:19 | NUR ---
0820- DR MANRIQUE HERE THIS AM. HD NURSE SITTING UP IN ROOM. HERE. BREAKFAST TRAY SERVED AND PT ATE A FEW BITES THEN ASKED FOR NEPRO. NEPRO PROVIDED.
--- NOTE | 2016-07-13 11:53 | NUR ---
Mr. Garcia had bedside hemodialysis today via his left upper arm av fistula from 0843 until 1143. Average blood flow was 400 mls/minute. Today was ultrafilration only. Removed 4000mls net. Post vital signs were:B/P:126/62, HR:63,Temp:98.5,Resps:13. A little hypotensive toward the end of treatment. No other problems.
--- NOTE | 2016-07-13 14:07 | NUR ---
DIALYSIS COORDINATOR: PATIENT PATHWAYS: [facility] MON/WED/FRI 2ND SHIFT. CLINIC NOTIFIED AND RECORDS FORWARDED FOR THEIR CHARTS. JAMES EDUARDO.
--- NOTE | 2016-07-13 15:28 | NUR ---
1200-HD COMPLETE, VSS, AFEBRILE, PT MARKO WELL, LUNCH TRAY SERVED.
--- NOTE | 2016-07-13 20:02 | NUR ---
REPORT RECIEVED.A SSESSMENT COMPLETE PER FLOW SHEET. VSS. DENIES PAIN OR NEEDS. REPOSITIONEDON R SIDE PER REQUEST. RESTING COMFORTABLY.
--- NOTE | 2016-07-13 21:16 | NUR ---
NO FAMILY AT THIS TIME. DR MANRIQUE PAGED. LEAN CALL BACK, PT REQUESTED HOME AMBIEN FOR TONIGHT T ORDER FOR AMBIEN 10 MG QHS TO BE GIVEN. NEEDS MET. VSS. WILL CONTINUE TO MONITOR.
--- NOTE | 2016-07-13 22:58 | NUR ---
REPORT GIVEN NO NEW FINDINGS. VSS WILL CONTINUE TO MONITOR.
--- NOTE | 2016-07-13 23:39 | NUR ---
RECIEVED FROM ICU TO ROOM 2124. TRANSFERRED TO BED. REPOSITIONED AND O2 @ 8L/OXIMISER CONTINUED. RT SETTING UP YANKER. CALL LIGHT IN REACH.
[2016-07-14] VITALS: BP 127/49
--- NOTE | 2016-07-14 01:15 | NUR ---
PT C/O PAIN AND DISCOMFORT. MEDICATED WITH NORCO FOR GENERALIZED PAIN.
[2016-07-14 04:00] VITALS: BP 136/55
--- NOTE | 2016-07-14 04:30 | NUR ---
PT C/0 SEVERE PAIN TO HIS FEET/LEGS, SAYING HE GOT THEM TANGLED IN THE SHEETS AND BY THE TIME HE GOT THEM OUT HE WAS REALLY HURTING. MEDICATED WITH BUPRENEX 0.15 IV. CALL LIGHT IN REACH. CPOC.
--- NOTE | 2016-07-14 06:12 | NUR ---
UNABLE TO GET A BLOOD RETURN FROM PT'S ACCESSED PORT. PT WANTS LAB TO BE DRAWN ON HEMODIALYSIS. TUBES ON FRONT OF CHART.
[2016-07-14 08:00] VITALS: BP 155/55
--- NOTE | 2016-07-14 10:27 | NUR ---
RESP UL ON 02 8L OXIMIZER. TELEMETRY PACED. AT BS. WILL CONT. PLAN OF CARE.
--- NOTE | 2016-07-14 11:00 | NUR ---
CENTRAL LINE DRSG CHANGED BY FAB NUNEZ.
[2016-07-14 12:00] VITALS: BP 97/43
--- NOTE | 2016-07-14 14:18 | NUR ---
PLACD ON 1ST STEP MATTRESS FOR COMFORT.
--- NOTE | 2016-07-14 15:32 | NUR ---
BLADDER SCAN DONE. 0 RESIDULE NOTED.
--- NOTE | 2016-07-14 15:33 | NUR ---
WOUND CARE CONSULT: NOTED STAGE 2 PRESSURE ULCERS TO BILATERAL BUTTOCKS. BOTH MEASURE 1.5CM X 1.5CM CALMOSEPTINE CREAM IS BEING APPLIED DAILY AND NEEDED. LEFT ELBOW HAS SKIN TEAR THAT IS COVERED WITH TEGADERM. BILATERAL ARMS ARE DRY, LOOSE SKIN AND BRUISED. PT IS ON AN AIR OVERLAY MATTRESS AND IS TURNING/REPOSITIONING HIMSELF. WOUND CARE WILL CONTINUE TO MONITOR.
[2016-07-14 16:09] VITALS: BP 122/56
--- NOTE | 2016-07-14 17:39 | NUR ---
Patient Name: HIRAM BURR Admission Status: ER Accout number: [id number] Admission Date: 07-12-2016 : 1940 Admission Diagnosis:SHORTNESS OF BREATH Attending: LIZ Current LOS: 2 Anticipated DC Date: Planned Disposition: [facility] Facility Primary Insurance: MEDICARE A & B PLANNED EXTERNAL PROVIDER: LEONID SANDOVAL MEDICARE REHAB BED Discharge Planning Comments: * Is the patient Alert and Oriented? Yes 0 * How many steps to enter\exit or inside your home? NONE 0 * PCP DR. EDEN 0 * Pharmacy [facility] 0 * Preadmission Environment [facility] Facility 0 * Facility Name [facility] 0 * ADLs Partial Dependent 0 * Partial ADLs (Assistance needed) Bathing Medication Management Toileting Transfers 0 * Equipment Other 0 * Other Equipment [facility]IP[facility] * List name and contact numbers for known caregivers / representatives who currently or will assist patient after discharge: ERICA BURR, SPOUSE, 0 * Community resources currently utilized Other 0 * Please name any agencies selected above. OUTPATIENT DIALYSIS, [facility], M/W/F, 1200, TRANSPORT BY [facility] 0 * Additional services required to return to the preadmission environment? No 0 * Can the patient safely return to the preadmission environment? Yes 0 * Has this patient been hospitalized within the prior 30 days at any hospital? Yes 0 CM MET WITH PT IN ROOM TO DISCUSS DISCHARGE PLANNING AND NEEDS. PT REPORTS LIVING AT HOME INDEPENDENTLY WITH HIS SPOUSE PRIOR TO GOING TO INPATIENT REHAB AT [place] AND THEN [facility] FOR CONTINUED REHAB. PT REPORTS PLAN TO RETURN TO [facility] FOR CONTINUED REHAB AT DISCHARGE. PT RECEIVES OUTPATIENT DIALYSIS AT [facility], MWF, 1200, TRANSPORTED BY [facility]. FOR DISCHARGE, FAX DISCHARGE INFORMATION TO [facility] AT [phone]; NURSE REPORT TO BE CALLED TO [facility] AT [phone]. [facility] TO ARRANGE VAN TRANSPORTATION IF PT IS ABLE TO SIT SAFELY FOR DURATION OF TRANSPORT. Editor Managing Newspaper: Jason Jaimes
--- NOTE | 2016-07-14 18:03 | NUR ---
LEAVING FOR DIALYSIS BY BED.
[2016-07-14 18:23] LABS: BASOPHILS 0.8 % (0.0-2.0); EOSINOPHILS 0.7 % (0-7); HEMATOCRIT 31.7 % (42.0-54.0); HEMOGLOBIN 10.6 g/dL (13.5-17.5); IMMATURE GRANULOCYTES 9.5 % (0-5); LYMPHOCYTES 3.3 % (15-50); MCH 36.4 pg (26.0-34.0); MCHC 33.4 g/dL (31.0-37.0); MEAN PLATELET VOLUME 11.9 fL (7.4-10.4); MONOCYTES 8.1 % (2-11); NEUTROPHILS 77.6 % (40-80); RBC 2.91 10x6/uL (4.20-6.10); RDW 23.2 % (11.5-14.5); WBC 17.4 10x3/uL (4.8-10.8)
[2016-07-14 18:27] LABS: MCV 108.9 fL (80.0-100.0); PLATELET COUNT 117 10x3/uL (130-400)
[2016-07-14 18:44] LABS: ANION GAP 22.3 mmol/L (8-16); CALCIUM 9.9 mg/dL (8.5-10.1); CARBON DIOXIDE 21.5 mmol/L (21.0-32.0); POTASSIUM - SERUM 4.8 mmol/L (3.5-5.1); VANCOMYCIN - RANDOM 22.8 ug/mL (10.0-20.0)
[2016-07-14 18:45] LABS: CREATININE - SERUM 6.8 mg/dL (0.6-1.3); PHOSPHOROUS 7.2 mg/dL (2.5-4.9)
--- NOTE | 2016-07-14 19:34 | NUR ---
PT DOWNSTAIRS IN HEMODIALYSIS. REQUEST FOR PAIN PILL. PAIN PILL BROUGHT TO PT.
--- NOTE | 2016-07-14 20:47 | NUR ---
PT RETURNED VIA BED FROM DIALYSIS.
--- NOTE | 2016-07-14 21:04 | NUR ---
PT IMMEDIATELY SENT LUMBER CARRIER OPERATOR TO TELL NURSE HE NEEDED A PAIN PILL, WHEN HE WAS JUST GIVEN ONE IN DIALYSIS. PT THEN CALLED ON THE PHONE AND TOLD NURSE ON THE PHONE HE NEEDED A PAIN PILL, PLUS LUMBER CARRIER OPERATOR RETURNED TO ROOM AND TOLD HIM NURSE COULD NOT BRING ANOTHER ONE. PT THEN CALLED ON PHONE AGAIN AND TOLD ANOTHER NURSE THAT NOW HE NEEDED A BEDPAN. AT NO POINT HAS PT USED THE CALL LIGHT, NOR SAID ANYTHING TO THE LUMBER CARRIER OPERATOR'S THAT WERE IN HIS ROOM TWICE WHILE HE WAS CALLING ON THE PHONE. PT'S THEN CALLED NURSES STATION AND TOLD NURSE THAT SOMEONE BETTER GET IN THERE NOW BEFORE HE "CRAPPED". NURSE ENTERED ROOM, AND PT ON PHONE WITH HIS TELLING HER THAT NO ONE WAS HELPING HIM. NURSE ENTERED HE TOLD "NALINI GOT TO GO. I'M GETTING A TONGUE LASHING RIGHT NOW". PLACED PT ON BEDPAN. INSTRUCTED HIM TO TURN HIS CALL LIGHT ON WHEN HE WAS COMPLETE AND THAT THE ISSUE OF PAIN MEDS WOULD BE DISCUSSED AFTER A NEW SET OF VITAL SIGNS WERE TAKEN BECAUSE HE HAD JUST RETURNED FROM HEMODIALYSIS AND HAD A HISTORY OF LOW BP'S POST DIALYSIS. EXPLAINED TO PT THAT NURSE WAS IN ANOTHER ROOM WHILE HE WAS MAKING CALLS, AND CAME TO ROOM SOON SHE FINISHED IN PREVIOUS ROOM.
--- NOTE | 2016-07-14 22:00 | NUR ---
HS MEDS GIVEN. BP 123/47 AND PT STILL HURTING, SO ADMINISTERED BUPRENEX IV TO PROMOTE COMFORT. IV ABT INFUSED. SPOKE AT LENGTH WITH PT AND HE TOLD NURSE HE WAS SORRY FOR "CALLING MY ON YOU". NURSE APOLOGIZED TO PATIENT FOR WHAT HE PERCEIVED A "TONGUE LASHING". DISCUSSION AT LENGTH BETWEEN THIS NURSE AND PATIENT ABOUT THE WAY HOSPITALS ARE RUN, THE TIMES THAT ARE HECTIC, THAT PATIENTS DON'T ALWAYS KNOW WHAT NURSES ALSO HAVE TO DO FOR OTHERS. AFTER CONVERSING, PT AND NURSE ARE NOW ON GOOD TERMS WITH EACH OTHER.
--- NOTE | 2016-07-14 23:48 | NUR ---
PT GIVEN COMPLETE BED BATH BY CNAS X 2 AND TOLD THEM HE FELT SO MUCH BETTER. BUTT CREAM TO REAR, ON 1ST STEP AIR MATTRESS. CALL LIGHT IN REACH.
[2016-07-15] VITALS: BP 111/64
[2016-07-15 04:00] VITALS: BP 132/57
[2016-07-15 09:09] VITALS: BP 133/61
--- NOTE | 2016-07-15 10:05 | NUR ---
PT C/O MORE PAIN IN BILAT KNEES. REQUESTING HIS PRN MED BEFORE DIALYSIS. PROVIDED PT WITH PRN NORCO. PT VOICED THANKS AND BEING TRANSPORTED DOWN TO DIALYSIS AT THIS TIME. NO FURTHER NEEDS.
[2016-07-15 11:23] LABS: BASOPHILS 0.9 % (0.0-2.0); EOSINOPHILS 0.9 % (0-7); HEMATOCRIT 32.7 % (42.0-54.0); HEMOGLOBIN 10.9 g/dL (13.5-17.5); IMMATURE GRANULOCYTES 9.7 % (0-5); MCH 36.2 pg (26.0-34.0); MCHC 33.3 g/dL (31.0-37.0); MCV 108.6 fL (80.0-100.0); MEAN PLATELET VOLUME 12.1 fL (7.4-10.4); MONOCYTES 5.7 % (2-11); NEUTROPHILS 74.8 % (40-80); PLATELET COUNT 133 10x3/uL (130-400); RBC 3.01 10x6/uL (4.20-6.10)
[2016-07-15 11:42] LABS: ANION GAP 22.3 mmol/L (8-16); CALCIUM 10.1 mg/dL (8.5-10.1); CARBON DIOXIDE 21.9 mmol/L (21.0-32.0); CREATININE - SERUM 7.1 mg/dL (0.6-1.3); PHOSPHOROUS 7.6 mg/dL (2.5-4.9); POTASSIUM - SERUM 5.2 mmol/L (3.5-5.1); VANCOMYCIN - RANDOM 19.7 ug/mL (10.0-20.0)
--- NOTE | 2016-07-15 12:55 | NUR ---
Nutrition Follow Up: Chart reviewed. Pt in HD at this time. Pt is eating 55% meal avg on a renal diet. He is receiving Nepro with meals. No BM since admit. Wt stable. Noted pt with stage II. Labs noted. Meds noted including Albumin. Pt with fair po intake at this time. Rec continue current diet. RD following.
--- NOTE | 2016-07-15 13:04 | NUR ---
HEMODIALYSIS TREATMENT STOPPED AT 2 HR WHEN PATIENT'S BP DROPPED AGAIN. PATIENT HAD VERY LOW BP READINGS 30-45 MINUTES INTO TREATMENT, DR. MANRIQUE WAS NOTIFIED AND COME BY TO SEE PATIENT. STARTED ALBUMIN ON TREATMENT, ORDERS WERE TO STOP TREATMENT IF PATIENT'S BP DROPPED AGAIN. NET FLUID REMOVAL OF 300ML ONLY, BLOOD WAS RETURNED, NEEDLES PULLED, AND HEMOSTASIS ACHEIVED.
[2016-07-15 16:33] VITALS: BP 151/75
--- NOTE | 2016-07-15 16:46 | NUR ---
CHANGED DRSG TO L.ELBOW SKIN TEAR AND CLEANSED SITE. PULLED PT UP AND BED AND REPOSITIONED FOR COMFORT. PT RESTING QUIETLY AND DENIES ANY CURRENT PAIN JUST WAITING TO EAT DINNER. NO FURTHER NEEDS. WILL CPOC.
[2016-07-15 20:00] VITALS: BP 116/50
[2016-07-16] VITALS: BP 120/62
--- NOTE | 2016-07-16 05:15 | NUR ---
MEDICATED THIS SHIFT FOR PAIN PER MD ORDERS. MARKO WELL. HOB UP SR UP X2, C/L IN REACH.
--- NOTE | 2016-07-16 08:00 | NUR ---
INTRODUCED MYSELF TO PT PRIMARY RN FOR TODAYS SHIFT. SHIFT ASSESSMENT COMPLETED. PT HAS VERY THIN FRAGILE SKIN ALL OVER. BILAT ARMS ARE BRUISED. PT HAS OXYMIZER IN PLACE @8L AND IS BREATHING NONLABORED. LUNG SOUNDS ARE DIMINISHED THROUGHOUT LOBES. PT HAS A PACEMAKER NOTED AND RUNNING SR ON TELEMETRY. PT HAS A L.CHEST IP THAT IS SL. BIOPATCH IN PLACE AND SWAB CAPS IN USE. PT IS ON AN OVERLAY AIR MATTRESS FOR BEING BEDBOUND AND ALKA BEING APPLIED TO RED AREA ON BOTTOM. PT C/O OF KNEE PAIN REQUESTING THERAPY AND A TOPICAL OINTMENT FOR THE PAIN. WILL TRY AND GET BOTH ORDERED. PT DENIES ANY CURRENT NEEDS AND HAS FAMILY AT BEDSIDE, CL IN REACH, BED IN LOWEST, SIDE RAILS X2. WILL CPOC.
[2016-07-16 08:25] VITALS: BP 140/98
--- NOTE | 2016-07-16 09:15 | NUR ---
MORNING LAB DRAWN VIA L.CHEST INFUSAPORT. SITE HAS GOOD BLOOD RETURN AND FLUSHES EASILY. BLOOD WORK SENT TO LAB. SWAB CAPS BACK IN USE. WILL CPOC.
[2016-07-16 09:33] LABS: BASOPHILS 0.9 % (0.0-2.0); EOSINOPHILS 0.9 % (0-7); HEMATOCRIT 32.4 % (42.0-54.0); HEMOGLOBIN 10.6 g/dL (13.5-17.5); IMMATURE GRANULOCYTES 7.8 % (0-5); LYMPHOCYTES 5.5 % (15-50); MCH 36.3 pg (26.0-34.0); MCHC 32.7 g/dL (31.0-37.0); MEAN PLATELET VOLUME 11.1 fL (7.4-10.4); NEUTROPHILS 77.9 % (40-80); PLATELET COUNT 122 10x3/uL (130-400); RBC 2.92 10x6/uL (4.20-6.10); RDW 23.1 % (11.5-14.5)
[2016-07-16 09:50] LABS: ANION GAP 18.5 mmol/L (8-16); CALCIUM 10.2 mg/dL (8.5-10.1); CREATININE - SERUM 5.7 mg/dL (0.6-1.3); PHOSPHOROUS 7.4 mg/dL (2.5-4.9); POTASSIUM - SERUM 4.5 mmol/L (3.5-5.1)
[2016-07-16 12:28] VITALS: BP 144/52
[2016-07-16 15:01] VITALS: BP 128/53
[2016-07-16 19:00] VITALS: BP 168/58
--- NOTE | 2016-07-16 19:44 | NUR ---
PT LYING IN BED, AWAKE, ALERT, ORIENTED, DENIES ANY ACUTE NEEDS. TRAY TABLE MOVED CLOSE TO BED FOR PTS USE, CONTINUE TO MONITOR CLOSELY. 1ST STEP OVERLAY INFLATED, WORKING PROPERLY. BED LOW, CALL LIGHT IN REACH, SIDE RAILS X 2.
[2016-07-17] VITALS: BP 150/56
[2016-07-17 04:00] VITALS: BP 145/52
--- NOTE | 2016-07-17 04:35 | NUR ---
PT HAS HAD GREAT DIFFICULTY MAINTAINING HIS O2 SAT > 88 % ON NC. OXYMIZER PLACED @ 6 LPM WHICH HAS INCREASED HIS O2 SAT TO 97-100%. PT IS HAVING GREAT DIFFICULTY WITH THE OXYMIZER HOWEVER, R/T CONSTANT EPISTAXIS AND CONGESTION. WILL ASK ABOUT NS NASAL SPRAY. PT IS DISCOURAGED ABOUT HIS CONDITION AND ASKING IF A THORACENTESIS IS A POSSIBILITY FOR PULLING THE EXCESS FLUID OFF. DENIES ANY OTHER NEEDS AT THIS TIME. CONTINUE TO MONITOR CLOSELY.
--- NOTE | 2016-07-17 05:47 | NUR ---
PT HAVING DIFFICULTY WITH COUGH, CONGESTION, THICK SPUTUM, USING THE YONKER/SUCTION. PT CONTINUES TO HAVE EPISTAXIS WITH HIS OXYMIZER. CONTINUE TO MONITOR CLOSELY.
[2016-07-17 06:13] LABS: BASOPHILS 1.3 % (0.0-2.0); EOSINOPHILS 1.1 % (0-7); HEMATOCRIT 31.5 % (42.0-54.0); HEMOGLOBIN 10.2 g/dL (13.5-17.5); IMMATURE GRANULOCYTES 7.7 % (0-5); LYMPHOCYTES 6.3 % (15-50); MCH 35.4 pg (26.0-34.0); MCHC 32.4 g/dL (31.0-37.0); MCV 109.4 fL (80.0-100.0); MEAN PLATELET VOLUME 11.7 fL (7.4-10.4); MONOCYTES 7.9 % (2-11); NEUTROPHILS 75.7 % (40-80); PLATELET COUNT 128 10x3/uL (130-400); RBC 2.88 10x6/uL (4.20-6.10); RDW 22.6 % (11.5-14.5); WBC 15.1 10x3/uL (4.8-10.8)
[2016-07-17 06:41] LABS: ANION GAP 23.3 mmol/L (8-16); CALCIUM 10.2 mg/dL (8.5-10.1); CARBON DIOXIDE 22.2 mmol/L (21.0-32.0); PHOSPHOROUS 8.2 mg/dL (2.5-4.9); POTASSIUM - SERUM 4.5 mmol/L (3.5-5.1); VANCOMYCIN - RANDOM 15.1 ug/mL (10.0-20.0)
[2016-07-17 06:43] LABS: CREATININE - SERUM 7.2 mg/dL (0.6-1.3)
--- NOTE | 2016-07-17 07:15 | NUR ---
AAOX4 RESP UNLABORED O2 ON PER OXIMIZER AT [address] MANRIQUE'S PHONE NUMBER EXPLAINED WE COULD NOT GIVE PHYSICIAN NUMBERS OUT BUT WOULD ENSURE MD ABLE BODIED TANKERMAN WILL SEE HIM
--- NOTE | 2016-07-17 07:53 | NUR ---
ASSESSMENT COMPLETED. TELEMERTY SHOWS PACED RHYTHM. PT HAS A LEFT CHEST IP. RESERVE LEFT ARM DUE TO AVF. 1ST STEP OVERLAY. DENIES ANY NEEDS. CALL LIGHT IN REACH WITH SR UP. WILL MONITOR
[2016-07-17 08:26] VITALS: BP 141/50
--- NOTE | 2016-07-17 10:41 | NUR ---
LYING QUIETLY WITH HOB UP. READY FOR DIALYSIS. DENIES ANY NEEDS. CALL LIGHT IN REACH WITH SR UP
--- NOTE | 2016-07-17 12:42 | NUR ---
PT GETTING DIALYSIS. V/S STABLE. CALL LIGHT IN REACH WITH SR UP. WILL MONITOR
--- NOTE | 2016-07-17 14:03 | NUR ---
UNDER GOING DIAYLIS. TOLERATING IT WELL, TELEMERTY SHOWS PACED RHYTHM. WILL MONITOR
--- NOTE | 2016-07-17 15:32 | NUR ---
Mr. Garcia had bedside hemodialysis today via his left upper arm av fistula. Average blood flow was 400 mls/minute. Net fluid was 2500mls. Pt became hypotensive about 1hr and 15 minutes into treatment. Pt. was already on a dopamine non titrated drip. I infused albumin 12.5 grams iv times one dose which really did not help much. As B/P eventually read 72/48 I had to stop pulling fluid and Dr. Montgomery was notified and orders received to stop treatment. Post vital signs were: B/P:116/54,HR:61,Temp:97.9,Resps:20.
--- NOTE | 2016-07-17 15:45 | NUR ---
DIALYSIS FINISHED. V/S STABLE . HOB UP. TELEMERTY SHOWS PACED RHYTHM
[2016-07-17 16:00] VITALS: BP 130/53
--- NOTE | 2016-07-17 18:08 | NUR ---
LYING QUIETLY. FAMILY AT BEDSIDE. DENIES ANY NEEDS. DOPAMINE AT 13.5CC/HR. TELEMERTY SHOWS PACED RHYTHM. WILL MONITOR
--- NOTE | 2016-07-17 19:23 | NUR ---
INITIAL ROUNDS COMPLETED. PT DENIES ANY DISCOMFORT. WILL CONTINUE TO MONITOR.
--- NOTE | 2016-07-17 19:56 | NUR ---
ASSESSMETN CMPOPLETED AT 1940 HRS. PACED RHYTHM PER CM HR 61. LAVF WITH BRUIT AND THRILL NOTED. BRUIUES NOTED TO BILAT ARMS. HEALING STAGE 1 TO BUTTOCKS. O2 6L OXIMIZER. SCABS NOTED TO L HAND, FA AND ELBOW. DOPAMINE AT 5 MCQ/KG/MIN (13.5CC/HR) TO L CHEST INFUSAPORT. LUNGS DIMINISHED IN BASES BILAT. SYSTOLIC MURMUR NOTED.. PT DENIES ANY DISCOMFORT. SR UP X2, CALL LIGHT WITHIN REACH.
[2016-07-17 20:19] VITALS: BP 145/59
--- NOTE | 2016-07-17 22:45 | NUR ---
PM MEDS GIVEN PER SCHEDULE. PT CURRENTLY RESTING WITH EYES CLOSED. RESP EVEN AND REGULAR. SR UP X2, CALL LIGHT WITHIN REACH AND BED ALARM ON.
[2016-07-18] VITALS (7 sets, daily range): BP systolic 91–141; BP diastolic 43–64
--- NOTE | 2016-07-18 03:30 | NUR ---
PACED RHTYM PER CM HR 61. PT RESTING WITH EYES CLOSED. RESP EVEN AND REGULAR. SR UP X2, CALL LIGHT WITHIN REACH.
--- NOTE | 2016-07-18 05:35 | NUR ---
AM LAB DRAWN VIA INFUSAPORT. AM MEDS GIVEN. VSS THROUGHOUT NIGHT. IV TO L CHEST INFUSAPORT SL. PT ANXIOUS DURING NIGHT. WILL CONTINUE TO MONITOR.
[2016-07-18 06:28] LABS: ANION GAP 20.3 mmol/L (8-16); CALCIUM 10.7 mg/dL (8.5-10.1); CREATININE - SERUM 5.3 mg/dL (0.6-1.3); PHOSPHOROUS 7.1 mg/dL (2.5-4.9); POTASSIUM - SERUM 4.3 mmol/L (3.5-5.1)
[2016-07-18 06:34] LABS: BASOPHILS 1.3 % (0.0-2.0); EOSINOPHILS 0.6 % (0-7); HEMATOCRIT 34.6 % (42.0-54.0); HEMOGLOBIN 11.4 g/dL (13.5-17.5); IMMATURE GRANULOCYTES 9.5 % (0-5); LYMPHOCYTES 7.1 % (15-50); MCH 35.8 pg (26.0-34.0); MCHC 32.9 g/dL (31.0-37.0); MCV 108.8 fL (80.0-100.0); MEAN PLATELET VOLUME 11.6 fL (7.4-10.4); MONOCYTES 6.1 % (2-11); NEUTROPHILS 75.4 % (40-80); PLATELET COUNT 148 10x3/uL (130-400); RBC 3.18 10x6/uL (4.20-6.10); RDW 22.3 % (11.5-14.5); WBC 16.7 10x3/uL (4.8-10.8)
--- NOTE | 2016-07-18 22:40 | NUR ---
PT REQUESTING A SUPPOSITORY AT SHIFT CHANGE. DUCOLAX SUPPOSITORY PLACED. MODERATE SOFT BROWN BM RESULTED IN APPROX 20 MINUTES. ASSESSMENT COMPLETED AT 1955HRS. VSS. PACED RHTHYM PER CM HR 61 WITH UNDERLYING CAF. O2 6L OXIMIZER. LUNGS DIMINISHED IN BASES BILAT. BRUISIES NOTED TO BILAT ARMS AND R UPPER CHEST. LAVF WITH GOOD BRUITA ND THRILL. DOPAMINE DRIP INFUSING AT 5MCQ/KG/MIN (13.5CC/HR) TO L CHEST INFUSAPORT. IV PATENT. STAGE 2 TO OUTER L BUTTOCKS AND STAGE 1 TO COCCYX. PT ON 1ST STEP AIR OVERLAY MATTRESS. BUDREAUX'S PASTE APPLIED TO BUTTOCKS . PM MEDS GIVEN INCLUDING NORCO FOR C/O BACK PAIN. PT THEN REQUESTING XANAX FOR ANXIETY. INFORMED PT THAT HE JUST RECEIVED 10MG OF AMBIENT AND NORCO 7.5MG AND DOEA NOT HAVE ORDER FOR XANAX. ALSO INFORMED IF XANAX GIVEN ON TOP OF OTHER MEDS PT COULD HAVE RESP DISTRESS. PT STATED UNDERSTANDING. RENAL SERVICES CALLED AND XANAX ORDER OBTAINED. PT CURETNLY RESTING WITH EYES CLOSED. RESP EVEN AND REGULAR. SR UP X2, CALL LIGHT WITHIN REACH.
[2016-07-19] VITALS (10 sets, daily range): BP systolic 92–143; BP diastolic 48–63
--- NOTE | 2016-07-19 00:12 | NUR ---
PT RESTING WITH EYES CLOSED. RESP EVEN AND REGULAR. SR UP X2, JERICA LIGHT WITHIN REACH.
--- NOTE | 2016-07-19 03:03 | NUR ---
PT RESTING WITH EYES CLOSED. RESP EVEN AND REGULAR. SR UP X2, CALL LIGHT WITHIN REACH.
--- NOTE | 2016-07-19 04:22 | NUR ---
PT RESTING WITH EYES CLOSED. RESP EVEN AND REGULAR. SR UP X2, CALL LIGHT WITHIN REACH.
[2016-07-19 06:07] LABS: HEMATOCRIT 32.9 % (42.0-54.0); HEMOGLOBIN 10.9 g/dL (13.5-17.5); MCH 35.7 pg (26.0-34.0); MCHC 33.1 g/dL (31.0-37.0); MCV 107.9 fL (80.0-100.0); MEAN PLATELET VOLUME 11.8 fL (7.4-10.4); PLATELET COUNT 148 10x3/uL (130-400); RBC 3.05 10x6/uL (4.20-6.10); RDW 21.9 % (11.5-14.5); WBC 20.1 10x3/uL (4.8-10.8)
--- NOTE | 2016-07-19 06:15 | NUR ---
VSS THROUGHOTU NIGHT. PACED RHYTHM PER CM. PT DENIES ANY DISCOMFORT THIS AM. NEEDS MET; WILL CONTINUE TO MONITOR.
[2016-07-19 06:18] LABS: ALBUMIN 2.5 g/dL (3.4-5.0); ANION GAP 21.4 mmol/L (8-16); BILIRUBIN - TOTAL 0.63 mg/dL (0.2-1.3); CALCIUM 10.6 mg/dL (8.5-10.1); CARBON DIOXIDE 24.9 mmol/L (21.0-32.0); CREATININE - SERUM 6.6 mg/dL (0.6-1.3); MAGNESIUM - SERUM 2.9 mg/dL (1.8-2.4); PROTEIN - SERUM 7.9 g/dL (6.4-8.2); VANCOMYCIN - RANDOM 23.2 ug/mL (10.0-20.0)
[2016-07-19 06:19] LABS: POTASSIUM - SERUM 5.3 mmol/L (3.5-5.1)
[2016-07-19 06:43] LABS: LYMPHOCYTES 12 % (15-50); MONOCYTES 7 % (2-11); NEUTROPHILS 75 % (40-80); PLATELET ESTIMATE NORMAL
--- NOTE | 2016-07-19 10:00 | NUR ---
ALERT AND ORIENTED X4. PHYSICAL THERAPY MAX ASSIST TO CHAIR FROM BED. PACED ON TELEMETRY 60bpm. STUDENT NURSE AT BEDSIDE. LINENS CHANGED. SOB TREATED WITH 02 AND UPDRAFTS. DENIES PAIN. CONTINUE PLAN OF CARE AND SAFETY PRECAUTIONS.
--- NOTE | 2016-07-19 14:28 | NUR ---
LAYING IN BED. ALERT AND ORIENTED X4. BEGINNING DIALYSIS AT BEDSIDE. ASSIST REPOSITIONING IN BED. DENIES ANY NEEDS AT THIS TIME. BED LOCKED AND LOW. CALL LIGHT IN REACH. TWO SIDERAILS UP. REFUSE SCDs.
--- NOTE | 2016-07-19 16:40 | NUR ---
HYPOTENSIVE CRISIS DURING DIALYSIS. RAPID RESPONSE CALLED. RAPID RESPONSE DOCUMENTATION ON CHART. PACED ON TELEMETRY 60bpm. O2-92% 6L OXYMIZER. AT BEDSIDE. TAKEN OFF DIALYSIS MACHINE. EKG COMPLETE PER ORDER. PLACED ON CHART. TROPONIN STAT ORDERED PER AND . CONTINUE TO MONITOR. STABLE. BP-154/60. CONTINUE STAFETY PRECAUTIONS.
--- NOTE | 2016-07-19 17:12 | NUR ---
Mr. Garcia had bedside hemodialysis today via his left upper arm av fistula from 1444 until 1620. at 1615 noticed some high venous pressures and I went to adjust the venous needle. Just as I corrected the venous needle I looked up at the pt.and noticed he was having agonal breathing and was non responsive briefly. I called a rapid response and reinfused his blood. As the team arrived Dr. Katz asked me to give another 500 mls normal saline. Pt. quickly recovered and became totally responsive. Approximately 1000 mls was netted today only due to this hypotensive crisis. Post vital signs were:B/P:1663/63,HR:63,Temp:98.1, Resps:20.
--- NOTE | 2016-07-19 18:09 | NUR ---
ALERT AND ORIENTED X4. COMPLAINING OF CHEST PAIN. EXPRESSES FEELING LIKE HE IS NOT GOING TO MAKE IT. XANAX AND NORCO GIVEN TO RELEAVE PAIN AND ANXIETY NOT SUCCESSFUL. REQUESTING DOCTOR BE CALLED AND TRANSFERRED TO ICU. AND VERÓNICA, RENAL AUDIO VIDEO TECH ORDER TRANSFER TO ICU VIA PHONE. NOTIFY SALON RECEPTIONIST. ORDER TO TRANSFER TO ROOM 3864.
--- NOTE | 2016-07-19 19:00 | NUR ---
REPORT RECEIVED FROM SANDRA IN ICU. ASSESSMENT COMPLETED. PT WAS ON DOPAMINE DRIP WHEN RECEIVED. PRESSURE ELEVATED. SANDRA CALLED DR DICKERSON AND WAS TOLD IT WAS OKAY TO D/C. ONCE TURNED OFF PRESSURE NORMALIZED. PT C/O ANXIETY AND ABDOMINAL PAIN. WILL MONITOR AND ADMINISTER MEDS ORDERED.
--- NOTE | 2016-07-19 21:00 | NUR ---
2100 MEDS GIVEN. FAMILY AT BEDSIDE. DISCUSSED CURRENT STATUS. VSS. WILL MONITOR
--- NOTE | 2016-07-19 23:00 | NUR ---
REASSESSMENT COMPLETED. PT HAS HAD 2 BOWEL MOVEMENTS. LINEN CHANGE COMPLETED. HAIR WASHED. NO BATH PER PATIENT REQUEST.
[2016-07-20] VITALS (18 sets, daily range): BP systolic 117–150; BP diastolic 54–73
--- NOTE | 2016-07-20 01:00 | NUR ---
PT REPOSITIONED FOR COMFORT. NO OTHER CHANGES AT THIS TIME. VSS. WILL MONITOR
--- NOTE | 2016-07-20 03:00 | NUR ---
REASSESSMENT COMPLETED. SEE FLOWSHEET
--- NOTE | 2016-07-20 05:00 | NUR ---
SINCE REASSESSMENT PT HAS NOTED ABDOMINAL PAIN. HAVE PROVIDED MEDS REQUESTED, AND REPOSITIONED FOR COMFORT. WILL CONTINUE TO MONITOR FOR INCREASING SEVERITY AND DISTENTION.
[2016-07-20 05:53] LABS: EOSINOPHILS 0.3 % (0-7); HEMATOCRIT 31.3 % (42.0-54.0); HEMOGLOBIN 10.5 g/dL (13.5-17.5); IMMATURE GRANULOCYTES 10.9 % (0-5); LYMPHOCYTES 3.3 % (15-50); MCH 36.6 pg (26.0-34.0); MCHC 33.5 g/dL (31.0-37.0); MCV 109.1 fL (80.0-100.0); MEAN PLATELET VOLUME 11.6 fL (7.4-10.4); MONOCYTES 5.2 % (2-11); NEUTROPHILS 79.3 % (40-80); PLATELET COUNT 124 10x3/uL (130-400); RBC 2.87 10x6/uL (4.20-6.10); RDW 21.8 % (11.5-14.5); WBC 23.8 10x3/uL (4.8-10.8)
[2016-07-20 06:12] LABS: ALBUMIN 2.4 g/dL (3.4-5.0); ANION GAP 19.1 mmol/L (8-16); BILIRUBIN - TOTAL 0.57 mg/dL (0.2-1.3); CALCIUM 10.1 mg/dL (8.5-10.1); CARBON DIOXIDE 23.9 mmol/L (21.0-32.0); CREATININE - SERUM 5.5 mg/dL (0.6-1.3); MAGNESIUM - SERUM 2.7 mg/dL (1.8-2.4); PHOSPHOROUS 5.9 mg/dL (2.5-4.9); PROTEIN - SERUM 7.6 g/dL (6.4-8.2); VANCOMYCIN - RANDOM 17.2 ug/mL (10.0-20.0)
--- NOTE | 2016-07-20 07:15 | NUR ---
REPORT RECIEVED FROM ARCADE TECHNICIAN NURSE. PT RESTING IN BED QUIETLY. NO S/SX OF ACUTE DISTRESS NOTED AT THIS TIME. VSS. ASSESSMENT COMPLETE PER FLOWSHEET. BED ALARM ON. BED IN LOW POSITION. WILL CONTINUE TO ASSESS FOR CHANGES. PLAN OF CARE CONTINUED.
--- NOTE | 2016-07-20 09:00 | NUR ---
RENAL PAYROLL AND BENEFITS MANAGER AT BEDSIDE. STATED THAT WE WILL DIALYZE TODAY. WILL MONITOR BP AND ADMINISTER DOPAMINE IF NEEDED THROUGHOUT DIALYSIS.
--- NOTE | 2016-07-20 09:40 | NUR ---
REPOSITIONED FOR COMFORT. STATES HE CAN'T GET COMFORTABLE AND HE DOSEN'T FEEL GOOD. CALL LIGHT PLACED IN REACH. WILL CONT TO ASSESS.
--- NOTE | 2016-07-20 09:45 | NUR ---
AT PT'S BEDSIDE. PT UNCOMFORTABLE, MOANING, AND GRIMACING. REPOSITIONED. PT STATED, "I JUST WANT TO ." PT ASKED IF HE WERE TO REQUIRE LIFE SUSTAINING MEASURES WOULD HE AGREE TO THEM SUCH , CHEST COMPRESSIONS AND VENTILATION. PT STATED HE DID NOT WANT ANY OF THAT. REQUESTED FOR ME TO CALL HIS AND ASK HER TO COME SEE HIM. REPORTED TO ERVIN RENAL WEAVER [employer]. CALLED AND STATED SHE WOULD BE UP HERE TO SEE HIM.
--- NOTE | 2016-07-20 10:43 | NUR ---
NUTRITION MONITORING & EVAL CHART REVIEWED. PT CURRENTLY IN ICU. RENAL DIET WITH 1000 CC FR. CONTINUES POOR PO INTAKE AT THIS TIME. WILL PROVIDE DIET, MONITOR PT PROGRESS. RD FOLLOWING
--- NOTE | 2016-07-20 10:45 | NUR ---
ARRIVED TO SEE PT. AT BEDSIDE. PT STATED TO HER THAT HE DID NOT WANT ANY LIFE SUSTAINING MEASURES. UNDERSTANDING OF PT'S WISHES.
--- NOTE | 2016-07-20 12:26 | NUR ---
DIALYSIS NURSE AT BEDSIDE. PT REFUSED DIALYSIS TODAY. WILL NOTIFY ERVIN RENAL BAKERY HELPER.
--- NOTE | 2016-07-20 13:00 | NUR ---
AT BEDSIDE. PT TURNED AND REPOSITIONED FOR COMFORT. CALL LIGHT IN REACH.
--- NOTE | 2016-07-20 16:30 | NUR ---
BUTTON GRADER AT BEDSIDE FOR PRAYER.
--- NOTE | 2016-07-20 17:11 | NUR ---
PAIN MEDICATION ADMINISTERED FOR PAIN IN ABDOMEN. WILL REASSESS.
--- NOTE | 2016-07-20 19:30 | NUR ---
ASSESSMENT COMPLETE. S1S2; PACEMAKER. PACING SHOWING ON MONITOR; HR 60. RR SHALLOW; SOB; AND DIMINISHED THROUGHOUT ALL LOBES. AAO. PERRLA. PT C/O PAIN 6/10 IN ABD. ABD SWOLLEN; DISTENDED WITH GENERALIZED BRUISING NOTED. BRUISING NOTED B/L ARMS. PORT IN LEFT CHEST. LEFT ARM RESERVE; FISTULA IN LEFT ARM; BRUIT AND THRILL PRESENT. PT TEARFUL/SAD. STATED "WANT TO ." OFFERED DENOMINATIONAL SERVICES; STATED SPOKE WITH SURVEY WORKERS SUPERVISOR EARLIER.
[2016-07-21] VITALS (38 sets, daily range): BP systolic 76–138; BP diastolic 35–65
--- NOTE | 2016-07-21 06:21 | NUR ---
SEE FLOW SHEETS IN CHART FOR FURTHER DETAILS.
--- NOTE | 2016-07-21 07:45 | NUR ---
DR. MASON AT BEDSIDE. REPORTED PT'S WISHES.
[2016-07-21 08:15] LABS: BASOPHILS 1.3 % (0.0-2.0); EOSINOPHILS 0 % (0-7); HEMATOCRIT 33.6 % (42.0-54.0); HEMOGLOBIN 11.3 g/dL (13.5-17.5); IMMATURE GRANULOCYTES 8.2 % (0-5); LYMPHOCYTES 3.2 % (15-50); MCH 36.6 pg (26.0-34.0); MCHC 33.6 g/dL (31.0-37.0); MCV 108.7 fL (80.0-100.0); MONOCYTES 4.1 % (2-11); NEUTROPHILS 83.2 % (40-80); PLATELET COUNT 120 10x3/uL (130-400); RBC 3.09 10x6/uL (4.20-6.10); RDW 21.7 % (11.5-14.5); WBC 39.8 10x3/uL (4.8-10.8)
[2016-07-21 08:55] LABS: ALBUMIN 2.4 g/dL (3.4-5.0); BILIRUBIN - TOTAL 0.7 mg/dL (0.2-1.3); CALCIUM 10.7 mg/dL (8.5-10.1); CARBON DIOXIDE 19.2 mmol/L (21.0-32.0); MAGNESIUM - SERUM 2.9 mg/dL (1.8-2.4); PROTEIN - SERUM 6.9 g/dL (6.4-8.2)
[2016-07-21 08:56] LABS: CREATININE - SERUM 7.1 mg/dL (0.6-1.3)
[2016-07-21 08:57] LABS: ANION GAP 23.7 mmol/L (8-16); POTASSIUM - SERUM 6.9 mmol/L (3.5-5.1)
--- NOTE | 2016-07-21 09:58 | NUR ---
PT AGREED TO DIALYSIS TODAY. K+ CRITICALLY HIGH. VIKAS, DIALYSIS NURSE AT BEDSIDE TO START. PT HYPOTENSIVE WITH SYSTOLIC BP'S IN THE 70'S. DR. MASON CALLED ALONG WITH DR. MANRIQUE. DOPAMINE STARTED PER ORDERS TO INCEASE BP. RECIEVED ORDER FOR LEVOPHED IF NEEDED. WILL MONITOR BP THROUGHOUT DIALYSIS.
[2016-07-21 09:59] LABS: VANCOMYCIN - RANDOM 15.5 ug/mL (10.0-20.0)
--- NOTE | 2016-07-21 10:15 | NUR ---
12.5GM OF ALBUMIN GIVEN PER DIALYSIS NURSE TO AID WITH HYPOTENSION.
--- NOTE | 2016-07-21 10:40 | NUR ---
LEVOPHED STARTED. WILL TITRATE PER ORDER.
--- NOTE | 2016-07-21 11:15 | NUR ---
RESP SHALLOW AND LABORED AT THIS TIME. BREATHING THROUGH HIS MOUTH. VSS AT THIS TIME. WILL CONT TO ASSESS.
--- NOTE | 2016-07-21 13:04 | NUR ---
DIALYSIS COMPLETE. TOLERATED WELL WITH PRESSORS. WILL TITRATE PRESSORS OF TOLERATED.
--- NOTE | 2016-07-21 13:29 | NUR ---
Mr. Garcia had bedside hemodialysis today via his left upper arm av fistula from 09 until 1304. Average blood flow was 400 mls/minute. Used a 1.0 k bath for two hours and a 2.0 k bath for the last hour. Net fluid removed was 1000 mls. Pt. required dopamine and levophed during treatment as well as albumin 12.5 grams iv times one dose. Post vital signs were:B/P:90/58,HR:60,Temp:98.0,Resps:20.
--- NOTE | 2016-07-21 15:00 | NUR ---
LEFT BEDSIDE. STATED SHE WOULD BE BACK IN THE MORNING.
--- NOTE | 2016-07-21 16:45 | NUR ---
LEVOPHED AND DOPAMINE TITRATED OFF. VSS. WILL MONITOR.
--- NOTE | 2016-07-21 17:00 | NUR ---
REPOSITIONED FOR COMOFORT. CALL LIGHT PLACED IN REACH.
--- NOTE | 2016-07-21 19:30 | NUR ---
ASSESSMENT COMPLETE. S1S2. NSR SHOWING ON MONITOR. RR SHALLOW CRACKLES BILATERALLY IN UPPER LOBES; DIMINISHED BILATERALLY IN LOWER LOBES. PT C/O PAIN IN ABD; ABD SWOLLEN AND DISTENDED. PERRLA. AROUSES TO VOICE. PT GROANS. ABLE TO MAKE POSITION CHANGES WITH LITTLE ASSISTANCE. COMPLAINS OF PAIN WITH MOVEMENT. VSS. WILL CONTINUE TO MONITOR.
--- NOTE | 2016-07-21 21:15 | NUR ---
PT REFUSED TO TAKE MEDICATIONS. HELP LIPS TOGETHER AND SHOOK HEAD NO.
--- NOTE | 2016-07-21 23:15 | NUR ---
REASSESSMENT COMPLETE. NO CHANGES FROM PREVIOUS ASSESSMENT. BP HAS DECREASED. MONITORING CLOSELY.
[2016-07-22] VITALS (68 sets, daily range): BP systolic 78–152; BP diastolic 44–94
--- NOTE | 2016-07-22 00:21 | NUR ---
BP DECREASED. MAP ABOVE 65. MONITORING CLOSELY.
--- NOTE | 2016-07-22 00:30 | NUR ---
START PT BACK ON LEVOPHED FOR MAP BELOW 65 AND SBP BELOW 90.
[2016-07-22 04:21] LABS: ALBUMIN 2.5 g/dL (3.4-5.0); BILIRUBIN - TOTAL 0.62 mg/dL (0.2-1.3); CALCIUM 9.7 mg/dL (8.5-10.1); HEMATOCRIT 32.9 % (42.0-54.0); HEMOGLOBIN 10.8 g/dL (13.5-17.5); MAGNESIUM - SERUM 2.5 mg/dL (1.8-2.4); MCH 36.2 pg (26.0-34.0); MCHC 32.8 g/dL (31.0-37.0); MCV 110.4 fL (80.0-100.0); MEAN PLATELET VOLUME 12.1 fL (7.4-10.4); PHOSPHOROUS 7.2 mg/dL (2.5-4.9); PLATELET COUNT 147 10x3/uL (130-400); RBC 2.98 10x6/uL (4.20-6.10); RDW 21.9 % (11.5-14.5); VANCOMYCIN - RANDOM 25.8 ug/mL (10.0-20.0); WBC 35.2 10x3/uL (4.8-10.8)
[2016-07-22 04:23] LABS: ANION GAP 19.1 mmol/L (8-16); CARBON DIOXIDE 28.9 mmol/L (21.0-32.0); CREATININE - SERUM 4.4 mg/dL (0.6-1.3)
[2016-07-22 05:02] LABS: LYMPHOCYTES 7 % (15-50); MONOCYTES 4 % (2-11); NEUTROPHILS 81 % (40-80); PLATELET ESTIMATE NORMAL
--- NOTE | 2016-07-22 06:04 | NUR ---
PT WAS UNABLE TO SWALLOW WATER. SPOONED WATER INTO MOUTH; PT BEGAN CHOKING. SUCTIONED WATER OUT OF MOUTH. ORAL CARE PROVIDED; MOUTH MOISTURIZER APPLIED.
--- NOTE | 2016-07-22 08:00 | NUR ---
SHIFT ASSESSMENT VIA FLOWSHEET, SEE FOR DETAILS.
--- NOTE | 2016-07-22 09:36 | NUR ---
CM REASSESSMENT NOTE: CM WAS CALLED TO ICU TO SPEAK WITH MS. SHI REGARDING HOSPICE FOR HER SPOUSE. MS. SHI WAS ON THE PHONE WITH DR. MASON AT THE TIME OF ARRIVAL. INSTRUCTIONAL DESIGN TECHNOLOGIST, SPOUSE AND CM WAS AT PATIENTS BEDSIDE WHEN AND RN ASKED IF HE WANTED DIALYSIS AND PATIENT STATED NO (SEVERAL TIMES ASKED - SAME ANSWER). CM SPOKE WITH AND SHE IS WANTING [facility]. CM AND INSTRUCTIONAL DESIGN TECHNOLOGIST ASKED PATIENT IF HE KNEW WHAT HOSPICE WAS AND DID HE WANT IT. PATIENT SHOOK HIS HEAD UP AND DOWN AND SAID YES. BROCHURES WERE LEFT REGARDING [facility] WITH . PATIENTS GRANDDAUGHTER IS COMING AT NOON TO VISIT. CM CALLED DR. MANRIQUE AND WAITING GRAPHIC SPECIALIST BACK.
--- NOTE | 2016-07-22 10:08 | NUR ---
NUTRITION MONITORING & EVAL CHART REVIEWED. CM NOTE RE:HOSPICE. RD FOLLOWING
--- NOTE | 2016-07-22 13:14 | NUR ---
[facility] WAS CONSULTED FOR PATIENT (DR. DICKERSON). FAMILY NOTIFIED OF TIME HOSPICE IS COMING BETWEEN 2-2:30. ICU NURSE NOTIFIED
--- NOTE | 2016-07-22 14:30 | NUR ---
[facility] HOUSING ASSISTANT PROPERTY MANAGER HERE TO SPEAK WITH FAMILY.
--- NOTE | 2016-07-22 16:59 | NUR ---
SPOKE WITH ROXIE AT [facility], PT REPORT PROVIDED.
--- NOTE | 2016-07-22 18:24 | NUR ---
SPOKE WITH [facility].
--- NOTE | 2016-07-22 19:20 | NUR ---
ASSESSMENT COMPLETE. S1S2. PACEMAKER PRESENT. PACING SHOWING ON MONITOR. RR SHALLOW DIMINISHED THROUGHOUT ALL LOBES. PT TEARFUL AND WITHDRAWN. REFUSED TO DRINK WATER. PT STATED READY TO . RADIAL AND PEDAL PULSES WEAK. GENERALIZED BRUISING NOTED TO EXTREMITIES X4 AND ABDOMEN. PERRLA 2MM BRISK. LETHARGIC AND OPENS EYES WITH SPEECH. VSS. ON LEVOPHED AT 2MCG/KG/MIN. NS AT KVO. LEFT CHEST PORT; PATENT. DRESSING CDI; BIO PATCH IN PLACE. FISTULA TO LEFT ARM; BRUIT AND THRILL PRESENT.
--- NOTE | 2016-07-22 19:45 | NUR ---
PT LEFT ICU WITH LIFENET; VIA STRETCHER. PT ON 2 MCG/KG/MIN LEVOPHED AND 9L OXYMIZER. ALL BELONGINGS SENT WITH PT. MISSY NOTIFIED THAT PT WAS LEAVING FACILITY.
--- NOTE | 2016-07-22 19:45 | NUR ---
ALARIS IV PUMP SENT WITH [employer]; PT ON LEVOPHED.
--- NOTE | 2016-07-22 19:50 | NUR ---
HOSPICE NOTIFIED THAT PT IS IN ROUTE.
--- NOTE | 2016-07-23 10:19 | EC ---
PATIENT:HIRAM BURR DATE OF SERVICE: 07/12/16 SEX: M MEDICAL RECORD: [id number] DATE OF : 42 LOCATION:[facility] D230 AGE OF PATIENT: 75 ADMISSION DATE: 07/12/16 REFERRING PHYSICIAN: INTERPRETING PHYSICIAN: RAAD ADAMS MD ECHOCARDIOGRAM REPORT ECHO CHARGES 4 ECHO COMPLETE CLINICAL DIAGNOSIS: S/P MAZE PROCEDURE/CHF/AFIB ECHOCARDIOGRAPHIC MEASUREMENTS (adult normal given) AC root (d.<3.7cm) 5.0 LV Septum d (<1.2 cm> 1.8 Valve Excursion 1.8 LV Septum (systole) 2.0 Left Atria (s.<4.0cm> 5.3 LVPW d(<1.2cm) 1.6 RV (d.<2.3cm) 5.3 LVPW (sytole) 2.1 LV diastole(<5.6CM) 7.4 MV E-F(>70mm/sec) LV systole 5.0 LVOT Diameter 1.8 MV exc.(>10mm) 2.0 Est.ejection fraction (50-75%) Pericardial Effusion N DOPPLER: LVIT A 32.0 E 128 LA RVSP 59 LVOT 117 AOP1/2T Asc. Ao 310 RVOT RA PA AV Gradient Peak 38.54 AV Mean 23.44 AV Area 1.0 MV Gradient Peak 9.45 MV Mean 1.84 MV Area COMMENTS: Director Patient Financial Services: Jethro VASQUEZ [employer]ship:1 Dr. Adams TAPE# PACS DATE OF SERVICE: 07/13/2016 Echocardiogram FINDINGS: 1. Left ventricular chamber size is within normal limits. Left ventricular systolic function is normal. Overall ejection fraction estimated at 55%. 2. Left atrium is enlarged at 5.3cm. Right atrium and right ventricular chamber sizes are as well moderately dilated. 3. Valvular structures: Aortic valve demonstrates mild calcific aortic ECHOCARDIOGRAM REPORT [id number] HIRAM BURR stenosis. Valve area calculates to 1.0 cm-squared. There is a gradient of 38 mm across the valve. The remaining valvular structures have normal structure and motion. 4. Doppler interrogation elsewise reveals moderate mitral regurgitation, [id number] tricuspid regurgitation, no other valvular insufficiency or stenosis. Pulmonary systolic pressure is elevated estimated at 59 mmHg. 5. No evidence of pericardial effusion or left ventricular thrombus. TRANSINT:[id number] Voice Confirmation ID: [id number] DOCUMENT ID: [id number] 07/15/2016 Edited to correct date of service, [email or web address]. RAAD ADAMS MD at 1019 CC: [id number] DICTATION DATE: 07/14/16 1058 [employer]CE VARIATION EQUIPMENT TENDER: 07/14/16 1255 DIS IN 07/22/16 [place] [id number]
== END 2016-07-22 19:45 | disposition home health service (06) | DRG 177 ==
LOC: D.ER 18:34 → D.M2 20:47 → D.ICU 20:47 → D.M2 07-13 23:14 → D.ICU 07-19 18:45
PROVIDERS: Internal Medicine Pulmonary Disease; Nurse Practitioner Acute Care; ADMIT Internal Medicine Nephrology
PROC: 5A1D60Z (ICD-10-PCS; principal; 2016-07-13)
DX: J15.212 Pneumonia due to Methicillin resistant Staphylococcus aureus (principal); J96.21 Acute and chronic respiratory failure with hypoxia; N18.6 End stage renal disease; J81.1 Chronic pulmonary edema; I69.954 Hemiplegia and hemiparesis following unspecified cerebrovascular disease affecting left non-dominant side; I48.92 Unspecified atrial flutter; I12.0 Hypertensive chronic kidney disease with stage 5 chronic kidney disease or end stage renal disease; G62.9 Polyneuropathy, unspecified; I25.10 Atherosclerotic heart disease of native coronary artery without angina pectoris; I48.0 Paroxysmal atrial fibrillation; D63.1 Anemia in chronic kidney disease; Z99.2 Dependence on renal dialysis; E83.39 Other disorders of phosphorus metabolism; F41.9 Anxiety disorder, unspecified; F32.9 Major depressive disorder, single episode, unspecified; M25.569 Pain in unspecified knee; Z66 Do not resuscitate; I08.1 Rheumatic disorders of both mitral and tricuspid valves; E87.5 Hyperkalemia; E83.52 Hypercalcemia; Z95.5 Presence of coronary angioplasty implant and graft; Z95.2 Presence of prosthetic heart valve; Z87.891 Personal history of nicotine dependence